=== PATIENT | male | born 1955 | race Caucasian/White ===

== ENCOUNTER 2020-10-03 14:25 | Observation (INO) ==
[2020-10-03] MEDS ORDERED: PIPERACILLIN/TAZOBACTAM 4.5 GM/120 ML BAG IV ONE (15:08)
[2020-10-03] MEDS ORDERED: PIPERACILL/TAZOBAC CONSULT ACTIVE PRN (15:08)
[2020-10-03] MEDS ORDERED: SODIUM CHLORIDE 0.9% 1000ML 1,000 ML IV SCH (15:09)
--- NOTE | 2020-10-03 15:14 | Emergency Department Note ---
History of Present Illness General Chief complaint: Abnormal Labs/Diagnostic Testing Stated complaint: REFERRED BY DR. INES HENDRICKSON. ABNORMAL CT SCAN Time Seen by Provider: 10/03/20 14:51 History of Present Illness Patient is a 65-year-old male with no significant past medical history who presents the emergency department at the advice of his primary care provider after having an outpatient CT scan yesterday. Patient notes that about 2 weeks ago, he was having some very low suprapubic/left lower quadrant abdominal pain. It was quite severe at that time. He had an abdominal ultrasound on 09/20 which showed some gallbladder sludge, and nephrolithiasis, but no ureteral stones or hydronephrosis. No evidence for acute cholecystitis. The pain went away. The patient has been feeling well since, with no recurrent abdominal pain, nausea, vomiting, anorexia, fevers or bowel changes. History of kidney stones, he was seen here in August. His primary care provider however wanted to do a CT scan, and he had a CT scan with IV and oral contrast performed as an outpatient yesterday afternoon around 1430. He was contacted today with abnormal results and told to present directly to the emergency department. Again the patient has no complaints. Pain is a 0/10. He ate Ramen noodles today at 1130, and carrot cake at 1330. He denies any urinary symptoms. Last colonoscopy was about 5 or 6 years ago, that he had polyps removed. Home Medications Medication Instructions Recorded Confirmed Type No Known Home Medications 10/03/20 10/03/20 History Allergies Allergy/AdvReac Type Severity Reaction Status Date / Time No Known Allergies Allergy Unverified 10/03/20 15:54 Past Med/Surg History Medical History Kidney stones Obesity Surgical History S/P right knee arthroscopy Social History Smoking Status: Current some day smoker Second Hand Exposure: No; Do You Dip or Chew Tobacco: No; Tobacco Cessation Education Requested by Patient: No Hx Alcohol Use: Yes Alcohol type: beer Hx Substance Use: No Preferred Language: Macanese Communication Ability: Effective [employer] Or [employer]mediate School Principal Required: No Beliefs That Will Affect Care: None marital status: Current Living Situation: Spouse current occupational status: employed Other Information That Helps Us Care for You: No Feels Safe at Home: Yes Assistive Devices: Glasses Review of Systems A total of 10 systems reviewed and were otherwise negative Physical Exam Vital Signs Vital Signs - 24 hr 10/03/20 14:28 10/03/20 15:53 10/03/20 16:00 Temperature 36.7 C Temperature Source Temporal Artery Scan Pulse Rate 91 H 67 67 Pulse Rate from SpO2 Sensor 68 67 Respiratory Rate 18 18 17 Respiratory Effort / Characteristics Non-Labored Respiratory Depth Normal Blood Pressure 166/105 H 150/111 H 147/91 H Blood Pressure Mean 125 124 109 Pulse Oximetry 98 99 99 Oxygen Delivery Method Room Air Sepsis Recent Fever Within 48 Hours No Sepsis New/Unexplained Change in Mental Status No Sepsis Action Taken by Nursing No Action Required 10/03/20 16:30 10/03/20 17:04 Temperature Temperature Source Pulse Rate 63 65 Pulse Rate from SpO2 Sensor 64 66 Respiratory Rate 19 17 Respiratory Effort / Characteristics Respiratory Depth Blood Pressure 160/95 H 148/106 H Blood Pressure Mean 116 120 Pulse Oximetry 100 98 Oxygen Delivery Method Sepsis Recent Fever Within 48 Hours Sepsis New/Unexplained Change in Mental Status Sepsis Action Taken by Nursing CONSTITUTIONAL: Patient is an overweight 65-year-old male who is awake and alert and in no acute distress. EYES: Pupils equal, round, reactive to light and accommodation. EOMs intact without nystagmus. Sclera are anicteric. CARDIOVASCULAR: Regular rate and rhythm. Peripheral pulses easy to palpable. RESPIRATORY: Breath sounds equal and clear to auscultation without wheezes, rales, or rhonchi heard. Full and equal chest expansion without accessory muscle use or retractions. GI: Bowel sounds are present. Abdomen is soft, obese, nontender to percussion throughout. Very minimal tenderness on the left lower quadrant with deep palpation. No guarding or rebound. No organomegaly. No pulsatile masses. MUSCULOSKELETAL: Full range of motion of extremities x 4 with good strength. No cyanosis, edema, joint tenderness or swelling. No deformity. INTEGUMENTARY: No lesions or rash, normal skin turgor. NEUROLOGICAL: Alert, oriented, and cooperative. Cranial nerves, sensation and strength grossly intact. Pupils round, equal, and react to light, EOMs are full. LYMPH: No lymphadenopathy. Course Course The patient was seen and assessed as above. Old records were reviewed. He presents the emergency department for evaluation after he had an abnormal CT scan as an outpatient yesterday. CT scan notes acute diverticulitis within the mid sigmoid colon with focal pericolonic perforation/developing abscess measuring 3.[address] scan findings were reviewed with the patient and his . Patient history and presentation were reviewed with Dr. Armendariz, and ED work-up was agreed upon. IV lock was initiated and laboratory studies were collected. CBC with differential, CMP, urinalysis, lactate and blood cultures x2 were drawn. He was instructed to remain NPO. He was hydrated with normal saline solution and given Zosyn 4.5 g IV empirically. Consultation was placed with general surgery, Dr. Contreras. He recommended admission to the hospitalist service, and he will consult. Laboratory studies noted a white count of 5800, no left shift, no bandemia. H&H is normal. Electrolytes are within normal limits. BUN 13, creatinine 0.85. His lactate is just minimally elevated at 2.1. Transaminases are normal. Urine microscopy is clear. The patient received a liter bolus of normal saline solution x1, then 250 cc/h. Patient was reviewed with the [facility] Hospitalist Service for admission. Patient was discussed with Dr. Barnes. The patient was reassessed. Laboratory studies were reviewed with him. Discussed with him that I had reviewed his case with general surgery, and had just spoken with the hospitalist team, and they would work on getting him admitted. Administered Medications Sodium Chloride (Nss 1000ml) 1,000 mls @ 250 mls/hr IV .Q4H LAUREN Stop: 11/02/20 15:14 Last Admin: 10/03/20 20:47 Dose: Not Given Documented by: [id number] Infusion: 10/03/20 20:37 Dose: 0 mls/hr Documented by: [id number] Admin: 10/03/20 17:01 Dose: 250 mls/hr Documented by: [id number] Sodium Chloride (Nss 1000ml) 1,000 mls @ 100 mls/hr IV .Q10H LAUREN Stop: 11/02/20 19:59 Last Admin: 10/03/20 20:28 Dose: 100 mls/hr Documented by: [id number] Piperacillin Sod/Tazobactam (Sod 4.5 gm/ Dextrose) 120 mls @ 30 mls/hr IV Q8H [facility]; Protocol Stop: 10/13/20 21:59 Last Admin: 10/03/20 21:34 Dose: 30 mls/hr Documented by: [id number] Discontinued Medications Sodium Chloride (Nss 1000ml) 1,000 mls @ 999 mls/hr IV .Q1H1M LAUREN Stop: 10/03/20 16:09 Last Infusion: 10/03/20 16:57 Dose: 0 mls/hr Documented by: [id number] Admin: 10/03/20 15:50 Dose: 999 mls/hr Documented by: [id number] Piperacillin Sod/Tazobactam Sod (Zosyn) 4.5 gm in 120 mls @ 240 mls/hr IV NOW ONE Stop: 10/03/20 15:37 Last Infusion: 10/03/20 16:57 Dose: 0 mls/hr Documented by: [id number] Admin: 10/03/20 15:50 Dose: 240 mls/hr Documented by: [id number] Medical Decision Making Differential Diagnosis Differential diagnoses entertained included UTI, pyelonephritis, renal colic, hernia, bowel obstruction, perforation, abscess, diverticulitis, mass or malignancy, prostatitis, among others. Medical Records Attestation: I reviewed the patient's medical records. Home Medications Current Medication List: was personally reviewed by me Laboratory Data Attestation: I reviewed the patient's lab results. Result diagrams: 10/03/20 15:35 10/03/20 15:35 Lab Results 10/03/20 10/03/20 10/03/20 Range/Units 15:35 15:35 15:35 WBC 5.89 (4.8-10.8) K/uL RBC 4.92 (4.7-6.1) M/uL Hgb 14.5 (14.0-18.0) g/dL Hct 43.0 (42-52) % MCV 87.4 (80-100) fL MCH 29.5 (25-34) pg MCHC 33.7 (32-36) g/dL RDW Std Deviation 44.0 (36.4-46.3) fL RDW Coeff of Prudence 13.8 (11.5-14.5) % Plt Count 190 (130-400) K/uL MPV 9.7 (7.4-10.4) fL Immature Gran % (Auto) 0.2 % Neut % (Auto) 64.0 % Lymph % (Auto) 29.5 % Bryan % (Auto) 5.6 % Eos % (Auto) 0.5 % Baso % (Auto) 0.2 % Neut # (Auto) 3.77 (1.4-6.5) K/uL Lymph # (Auto) 1.74 (1.2-3.4) K/uL Bryan # (Auto) 0.33 (0.11-0.59) K/uL Eos # (Auto) 0.03 (0-0.5) K/uL Baso # (Auto) 0.01 (0-0.2) K/uL Immature Gran # (Auto) 0.01 (0.00-0.02) K/uL Sodium 140 (136-145) mmol/L Potassium 3.6 (3.5-5.1) mmol/L Chloride 109 H (98-107) mmol/L Carbon Dioxide 26 (21-32) mmol/L Anion Gap 5.0 (3-11) BUN 13 (7-18) mg/dl Creatinine 0.85 (0.6-1.4) mg/dl Est Cr Clr Drug Dosing 115.4 ml/min Est GFR ( Amer) 107.5 ml/min Est GFR (Non-Af Amer) 92.7 ml/min BUN/Creatinine Ratio 15.3 (10-20) Glucose 117 H (70-99) mg/dl Lactate 2.1 H* (0.4-2.0) mmol/L Calcium 9.0 (8.5-10.1) mg/dl Total Bilirubin 0.3 (0.2-1) mg/dl AST 14 L (15-37) U/L ALT 28 (12-78) U/L Alkaline Phosphatase 95 (45-117) U/L Total Protein 7.5 (6.4-8.2) gm/dl Albumin 3.5 (3.4-5.0) gm/dl Globulin 4.0 (2.5-4.0) gm/dl Albumin/Globulin Ratio 0.9 (0.9-2) Urine Color Urine Appearance (Clear) Urine pH (4.5-7.5) Ur Specific [place] (1.000-1.030) Urine Protein (Negative) Urine Glucose (UA) (Negative) Urine Ketones (Negative) Urine Blood (Negative) Urine Nitrite (Negative) Urine Bilirubin (Negative) Urine Urobilinogen (Negative) Ur Leukocyte Esterase (Negative) COVID-19 Eval Order SARS-CoV-2 (PCR) (Negative) 10/03/20 10/03/20 10/03/20 Range/Units 16:00 17:00 17:00 WBC (4.8-10.8) K/uL RBC (4.7-6.1) M/uL Hgb (14.0-18.0) g/dL Hct (42-52) % MCV (80-100) fL MCH (25-34) pg MCHC (32-36) g/dL RDW Std Deviation (36.4-46.3) fL RDW Coeff of Prudence (11.5-14.5) % Plt Count (130-400) K/uL MPV (7.4-10.4) fL Immature Gran % (Auto) % Neut % (Auto) % Lymph % (Auto) % Bryan % (Auto) % Eos % (Auto) % Baso % (Auto) % Neut # (Auto) (1.4-6.5) K/uL Lymph # (Auto) (1.2-3.4) K/uL Bryan # (Auto) (0.11-0.59) K/uL Eos # (Auto) (0-0.5) K/uL Baso # (Auto) (0-0.2) K/uL Immature Gran # (Auto) (0.00-0.02) K/uL Sodium (136-145) mmol/L Potassium (3.5-5.1) mmol/L Chloride (98-107) mmol/L Carbon Dioxide (21-32) mmol/L Anion Gap (3-11) BUN (7-18) mg/dl Creatinine (0.6-1.4) mg/dl Est Cr Clr Drug Dosing ml/min Est GFR ( Amer) ml/min Est GFR (Non-Af Amer) ml/min BUN/Creatinine Ratio (10-20) Glucose (70-99) mg/dl Lactate (0.4-2.0) mmol/L Calcium (8.5-10.1) mg/dl Total Bilirubin (0.2-1) mg/dl AST (15-37) U/L ALT (12-78) U/L Alkaline Phosphatase (45-117) U/L Total Protein (6.4-8.2) gm/dl Albumin (3.4-5.0) gm/dl Globulin (2.5-4.0) gm/dl Albumin/Globulin Ratio (0.9-2) Urine Color Dark Yellow Urine Appearance Clear (Clear) Urine pH 7.0 (4.5-7.5) Ur Specific [place] 1.023 (1.000-1.030) Urine Protein Negative (Negative) Urine Glucose (UA) Negative (Negative) Urine Ketones Negative (Negative) Urine Blood Negative (Negative) Urine Nitrite Negative (Negative) Urine Bilirubin Negative (Negative) Urine Urobilinogen Negative (Negative) Ur Leukocyte Esterase Negative (Negative) COVID-19 Eval Order Covid19 at [facility] SARS-CoV-2 (PCR) NEGATIVE (Negative) Imaging Data Attestation: I personally reviewed and interpreted this imaging study as follows: Radiologist's Impression: CT scan of the abdomen and pelvis from 10/02/20: Acute diverticulitis within the mid sigmoid colon with a focal pericolonic perforation/developing abscess measuring 3.2 cm. Bilateral nephrolithiasis. No ureteral stones. No hydronephrosis. No evidence for bowel obstruction. Normal appendix. MDM Narrative See ED Course. Impression & Plan Abscess of sigmoid colon due to diverticulitis, Sigmoid diverticulitis, Perforation of sigmoid colon due to diverticulitis Discharge Plan Visit Data Chief Complaint: Abnormal Labs/Diagnostic Testing Stated Complaint: REFERRED BY , DR. CHACON. ABNORMAL CT SCAN ED Provider: Chemo Armendariz ED Midlevel Provider: Nasra Almendarez Discharge Problem: Abscess of sigmoid colon due to diverticulitis, Sigmoid diverticulitis, Perforation of sigmoid colon due to diverticulitis Patient Disposition: Admitted As Inpatient Discharge Instructions Interventions: ED Discharge Assessment Last Done: 10/03/20 19:43
[2020-10-03 15:45] LABS: Basophils # (auto) 0.01 K/uL (0-0.2); Basophils % (auto) 0.2 %; Eosinophils # (auto) 0.03 K/uL (0-0.5); Eosinophils % (auto) 0.5 %; Hemoglobin 14.5 g/dL (14.0-18.0); Immature Granulocytes # (auto) 0.01 K/uL (0.00-0.02); Immature Granulocytes % (auto) 0.2 %; Lymphocytes # (auto) 1.74 K/uL (1.2-3.4); Lymphocytes % (auto) 29.5 %; Mean Corpuscular Hemoglobin 29.5 pg (25-34); Mean Corpuscular Hgb Conc 33.7 g/dL (32-36); Mean Corpuscular Volume 87.4 fL (80-100); Mean Platelet Volume 9.7 fL (7.4-10.4); Monocytes # (auto) 0.33 K/uL (0.11-0.59); Monocytes % (auto) 5.6 %; Neutrophils # (auto) 3.77 K/uL (1.4-6.5); Platelet Count 190 K/uL (130-400); RDW Coefficient of Variation 13.8 % (11.5-14.5); Red Blood Count 4.92 M/uL (4.7-6.1); White Blood Count 5.89 K/uL (4.8-10.8)
[2020-10-03 16:04] LABS: Albumin Level 3.5 gm/dl (3.4-5.0); BUN Creatinine Ratio 15.3 (10-20); Creatinine Clr Calc Pharmacy 115.4 ml/min; Est GFR (African American) 107.5 ml/min; Est GFR (Non-African American) 92.7 ml/min; Potassium 3.6 mmol/L (3.5-5.1)
[2020-10-03 16:06] LABS: Albumin Globulin Ratio 0.9 (0.9-2); Bilirubin,Total 0.3 mg/dl (0.2-1); Total Protein 7.5 gm/dl (6.4-8.2)
[2020-10-03 16:19] LABS: Appearance Urine Clear (Clear); Bilirubin Urine Negative (Negative); Blood Urine Negative (Negative); Color Urine Dark Yellow; Glucose Urine UA Negative (Negative); Ketones Urine Negative (Negative); Leukocyte Esterase Urine Negative (Negative); Nitrite Urine Negative (Negative); Protein Urine Negative (Negative); Specific Gravity Urine 1.023 (1.000-1.030); Urobilinogen Urine Negative (Negative)
--- NOTE | 2020-10-03 16:23 | Surgery Consultation ---
Date of Consultation October 03, 2020 Assessment & Plan (1) Acute diverticulitis: pt is a 65 year-old male who presents to with abdominal CT scan finding, pt had CT scan abdomen yesterday and lower abdominal pain 2 weeks ago, CT scan finding-IMPRESSION: 1. Acute diverticulitis within the mid sigmoid colon with a focal pericolonic perforation/developing abscess measuring 3.2 cm. 2. Bilateral nephrolithiasis. No ureteral stones. No hydronephrosis. 3. Additional findings as described above. IMP: Acute diverticulitis within the mid sigmoid colon with a focal pericolonic perforation/developing abscess measuring 3.2 cm. Plan, base on pt has no abdominal pain, no fever, recommend medicine team admit pt to hospital conservative treatment, NPO, IV fluid, IV antibiotic, Zosyn 3.375gm iv q8h, repeat labs in morning, will F/U, pt agrees with the plan, I answered all questions, Thanks, Present on Admission?: Yes History of Present Illness History of Present Illness History of Present Illness General Chief complaint: Abnormal Labs/Diagnostic Testing Stated complaint: REFERRED BY DR. INES HENDRICKSON. ABNORMAL CT SCAN Time Seen by Provider: 10/03/20 14:51 History of Present Illness Patient is a 65-year-old male with no significant past medical history who presents the emergency department at the advice of his primary care provider after having an outpatient CT scan yesterday. Patient notes that about 2 weeks ago, he was having some very low suprapubic/left lower quadrant abdominal pain. It was quite severe at that time. He had an abdominal ultrasound on 09/20 which showed some gallbladder sludge, and nephrolithiasis, but no ureteral stones or hydronephrosis. No evidence for acute cholecystitis. The pain went away. The patient has been feeling well since, with no recurrent abdominal pain, nausea, vomiting, anorexia, fevers or bowel changes. History of kidney stones, he was seen here in August. His primary care provider however wanted to do a CT scan, and he had a CT scan with IV and oral contrast performed as an outpatient yesterday afternoon around 1430. He was contacted today with abnormal results and told to present directly to the emergency department. Again the patient has no complaints. Pain is a 0/10. He ate Ramen noodles today at 1130, and carrot cake at 1330. He denies any urinary symptoms. Last colonoscopy was about 5 or 6 years ago, that he had polyps removed. I ( Flora Contreras MD) got a call for consult diverticulitis, I reviewed pt's H/P, labs, and CT scan with pt, pt had lower abdominal pain 2 weeks ago, now pt denies abdominal pain, no nausea, no diarrhea, no fever, passed BM this morning. Home Medications Medication Instructions Recorded Confirmed Type ondansetron HCl [Zofran] 4 mg PO TID PRN #10 tab 08/13/20 Rx tamsulosin [Flomax] 0.4 mg PO DAILY #10 cap 08/13/20 Rx Allergies Allergy/AdvReac Type Severity Reaction Status Date / Time No Known Allergies Allergy Unverified 04/25/15 08:54 Past Med/Surg History Medical History Kidney stones Obesity Surgical History S/P right knee arthroscopy Social History Smoking Status: Current some day smoker marital status: Current Living Situation: Family current occupational status: employed Feels Safe at Home: Yes Review of Systems A total of 10 systems reviewed and were otherwise negative Allergies Allergy/AdvReac Type Severity Reaction Status Date / Time No Known Allergies Allergy Unverified 10/03/20 15:54 Home Medications Medication Instructions Recorded Confirmed Type No Known Home Medications 10/03/20 10/03/20 History Patient History Medical History Kidney stones Obesity Surgical History S/P right knee arthroscopy Social History Smoking Status: Current some day smoker marital status: Current Living Situation: Family current occupational status: employed Feels Safe at Home: Yes Physical Exam Constitutional: WD/WN, vitals as above well developed and well nourished Eyes: PERRL, conjunctivae normal, anicteric sclerae ENMT: external ear and nose normal, oropharynx normal Neck: trachea midline, no thyromegaly Respiratory: normal respiratory effort, lungs clear to auscultation normal respiratory effort Cardiovascular: RRR, no murmur, no edema Rate/Rhythm: regular rate and regular rhythm Gastrointestinal (Abdomen): normal bowel sounds, soft, nontender, no he patosplenomegaly Percussion/Palpation: abdomen soft Musculoskeletal: no cyanosis or clubbing, extremities motor strength 5/5 Skin: no rashes, warm and dry Neurologic: awake Psychiatric: Orientation: alert and oriented x 3 Results & Data ([facility]) Vital Signs (Past 12 Hours) Vital Signs Temp Pulse Resp BP Pulse Ox 10/03/20 14:28 36.7 C 91 H 18 166/105 H 98 Laboratory Results Abnormal lab results 10/03/20 10/03/20 Range/Units 15:35 15:35 Chloride 109 H (98-107) mmol/L Glucose 117 H (70-99) mg/dl Lactate 2.1 H* (0.4-2.0) mmol/L AST 14 L (15-37) U/L Diagnostic Findings ABDOMEN AND PELVIS CT WITH IV AND ORAL CONTRAST CT DOSE: 1618.37 mGy.cm HISTORY: Lower abdominal pain. TECHNIQUE: Multiaxial CT images of the abdomen and pelvis were performed following the use of intravenous and oral contrast. A dose lowering technique was utilized adhering to the principles of ALARA. COMPARISON STUDY: Abdomen and pelvis CT 08/13/2020. FINDINGS: No change in the bibasilar interstitial thickening and small groundglass densities at the lung bases. This is likely chronic. No suspicious lytic or blastic osseous lesions. No hepatic or splenic masses. Stable thickening of the adrenal glands, unchanged. There is also a stable 2.1 cm adenoma within the left adrenal gland. The gallbladder and pancreas are unremarkable. Normal caliber abdominal aorta. No retroperitoneal lymphadenop athy. Bilateral nephrolithiasis. Dominant stone within the left kidney measures 9 mm. Stable 1 cm hypodense lesion within the upper pole the right kidney. No ureteral stones. No hydronephrosis. The bladder is unremarkable. Multiple colonic diverticula. Mild focal thickening within the mid sigmoid colon. There is a focal contained perforation with surrounding inflammatory change adjacent to the mid sigmoid colon. This area measures approximately 3.2 cm and contains a small of gas and trace fluid. This likely represents a developing pericolonic abscess. No evidence for bowel obstruction. Normal appendix.
--- NOTE | 2020-10-03 16:57 | History & Physical Report ---
Date of Service October 03, 2020 Assessment & Plan (1) Abscess of sigmoid colon due to diverticulitis: Placed in a monitored observation Patient was given [facility] emergency room, okay to continue this for now Will start patient on clear liquid diet No need for analgesia this patient started having significant pain ER AMBER did speak to general surgery, will follow in consult but the patient has no immediate need for surgery If patient continues to do well, suspect he can be transitioned fairly readily to oral antibiotics with close outpatient follow-up. Will need repeat CT in the short-term to ensure abscess is resolving History of Present Illness Chief Complaint: Abnormal CT Primary Care Provider: ABDULAZIZ Ray This is 65-year-old male with past medical history of diverticulosis and a recent nephrolithiasis that presents today after abnormal CT scan on the advice of his physician. Patient is a somewhat difficult historian but able to answer questions appropriately. The story as best I can tell, the patient had some abdominal pain over the past 2 weeks. He experienced pain for a week before seeking medical attention. This was a diffuse but not severe. He had no nausea vomiting or fevers with this. I do not notice any weight loss with this. Patient saw his physician and underwent an abdominal ultrasound to rule out biliary disease. This was essentially negative. He tells me he was taking some sort of pain pill at home that he had left over from his renal stone and that this helped the pain. Patient tells me that a CT scan has been ordered but there is issues getting this performed secondary to the insurance company. Symptoms essentially resolved after week. However the patient went for a CAT scan earlier today which found acute diverticulitis within the mid sigmoid along with focal pericolonic perforation and an abscess of 3.2 cm. The time my evaluation, the patient felt well is in no distress. He denied any further abdominal pain. He denied any fevers or chills. He tells me he has been eating normally since the pain resolved and is had no issues. He is in no cardiopulmonary distress. Allergies Allergy/AdvReac Type Severity Reaction Status Date / Time No Known Allergies Allergy Unverified 10/03/20 15:54 Home Medications Medication Instructions Recorded Confirmed Type No Known Home Medications 10/03/20 10/03/20 History Past Med/Surg History Medical History Kidney stones Obesity Surgical History S/P right knee arthroscopy Social History Smoking Status: Current some day smoker marital status: Current Living Situation: Family current occupational status: employed Feels Safe at Home: Yes Review of Systems Constitutional: no fever, no chills, no weakness, no weight loss and no weight gain Eyes: as per Subjective / HPI Respiratory: no cough, no chest congestion, no dyspnea and no dyspnea on exertion Cardiovascular: no chest pain, no orthopnea, no palpitations, no lightheadedness and no edema Gastrointestinal: + abdominal pain (since resolved); no nausea, no vomiting, no constipation and no diarrhea/loose stools Musculoskeletal: no back pain, no neck pain, no joint pain, no stiffness and no myalgia Integumentary: no rash Neurologic: no gait abnormality, no unsteadiness, no falls and no generalized weakness Physical Exam Constitutional: cooperative; no acute distress Neck: trachea midline, no thyromegaly Respiratory: normal respiratory effort Auscultation: lungs clear to auscultation bilaterally; no crackles, no rales, no rhonchi and no wheezes Cardiovascular: Rate/Rhythm: regular rate and regular rhythm Heart Sounds: normal S1 and normal S2; no murmur Gastrointestinal (Abdomen): Inspection/Auscultation: abdomen normal to inspection Percussion/Palpation: abdomen soft; abdomen nontender, no guarding, abdomen not rigid and no hepatosplenomegaly Skin: no rashes, warm and dry Results & Data Results & Data ([facility]) Vital Signs (Past 12 Hours) Vital Signs Temp Pulse Resp BP Pulse Ox 10/03/20 16:30 63 19 160/95 H 100 10/03/20 16:00 67 17 147/91 H 99 10/03/20 15:53 67 18 150/111 H 99 10/03/20 14:28 36.7 C 91 H 18 166/105 H 98 PG Care Time/CCT Total # of Minutes Spent Total Time Spent with Patient: Total time spent is greater than 50% in coordination of care (as documented) at patient's floor/unit and/or counseling patient: Coding Level of Care Code 09666 OBS Care - Level 3 Diagnoses Abscess of sigmoid colon due to diverticulitis K57.20
[2020-10-03] MEDS: SODIUM CHLORIDE 0.9% 1000ML 1,000 ML IV SCH ×3 (17:01→20:47)
[2020-10-03] MEDS ORDERED: ACETAMINOPHEN 325 MG TAB PO PRN (20:00)
[2020-10-03] MEDS ORDERED: PIPERACILLIN/TAZOBACTAM 3.375 GM in DEXTROSE 5% 100 ML IV SCH (20:00)
[2020-10-03] MEDS ORDERED: ONDANSETRON INJ 2 MG/ML 2 ML VIAL IV PRN (20:00)
[2020-10-03] MEDS: PIPERACILLIN/TAZOBACTAM 4.5 GM in DEXTROSE 5% 100 ML IV SCH (21:34)
[2020-10-04] MEDS: SODIUM CHLORIDE 0.9% 1000ML 1,000 ML IV SCH ×5 (04:42→17:45)
[2020-10-04] MEDS: PIPERACILLIN/TAZOBACTAM 4.5 GM in DEXTROSE 5% 100 ML IV SCH ×2 (06:23→14:25)
[2020-10-04 06:31] LABS: Basophils # (auto) 0.01 K/uL (0-0.2); Basophils % (auto) 0.2 %; Eosinophils # (auto) 0.06 K/uL (0-0.5); Eosinophils % (auto) 1.1 %; Hematocrit (blood only) 40.3 % (42-52); Hemoglobin 13.3 g/dL (14.0-18.0); Lymphocytes # (auto) 2.56 K/uL (1.2-3.4); Mean Corpuscular Hemoglobin 29.3 pg (25-34); Mean Corpuscular Volume 88.8 fL (80-100); Mean Platelet Volume 9.7 fL (7.4-10.4); Monocytes % (auto) 5.4 %; Neutrophils # (auto) 2.64 K/uL (1.4-6.5); Neutrophils % (auto) 47.3 %; Platelet Count 200 K/uL (130-400); RDW Coefficient of Variation 14.1 % (11.5-14.5); RDW Standard Deviation 45.8 fL (36.4-46.3); Red Blood Count 4.54 M/uL (4.7-6.1); White Blood Count 5.57 K/uL (4.8-10.8)
[2020-10-04 07:10] LABS: Calcium 8.6 mg/dl (8.5-10.1); Est GFR (African American) 115.7 ml/min; Est GFR (Non-African American) 99.9 ml/min; Magnesium 2.3 mg/dl (1.8-2.4); Potassium 3.9 mmol/L (3.5-5.1)
--- NOTE | 2020-10-04 09:48 | Surgery Progress Note ---
Date of Service October 04, 2020 Assessment & Plan (1) Acute diverticulitis: Complicated diverticulitis with microperforation and 3.2 cm abscess afebrile no leukocytosis abdominal pain resolved tolerated clear liquids Plan: Discussed with patient that he is clinically improving, pain resolved, afebrile and no leukocytosis however given the abscess formation will need prolonged antibiotics. Likely total of 14 days of abx. Continue IV Zosyn Advance diet to full liquids will need outpatient colonoscopy in 8 weeks low fiber diet on discharge during acute phase and transition to high fiber diet after colonoscopy Dr. Contreras has seen and examined pt, agrees with above. Admission and Anticipated Discharge Date Admission Date: October 03, 2020 Subjective feeling good no abdominal pain, n/v tolerated clear liquids this morning passing gas, no bowel movement since yesterday morning Physical Exam Constitutional: well developed and well nourished; no acute distress Respiratory: normal respiratory effort; no respiratory distress Gastrointestinal (Abdomen): Inspection/Auscultation: abdomen normal to inspection and normal bowel sounds; abdomen not distended Percussion/Palpation: abdomen soft; abdomen nontender, no guarding and abdomen not rigid Skin: no rashes, warm and dry Psychiatric: A+Ox3, euthymic affect Results & Data ([facility] [place]) Vital Signs (Past 12 Hours) Vital Signs Temp Pulse Pulse Resp BP Pulse Ox 10/04/20 07:35 36.8 C 50 L 18 132/80 95 10/03/20 22:42 36.9 C 46 L 16 138/86 96 Laboratory Results 10/04/20 10/04/20 10/04/20 Range/Units 06:18 06:18 06:18 WBC 5.57 (4.8-10.8) K/uL RBC 4.54 L (4.7-6.1) M/uL Hgb 13.3 L (14.0-18.0) g/dL Hct 40.3 L (42-52) % MCV 88.8 (80-100) fL MCH 29.3 (25-34) pg MCHC 33.0 (32-36) g/dL RDW Std Deviation 45.8 (36.4-46.3) fL RDW Coeff of Prudence 14.1 (11.5-14.5) % Plt Count 200 (130-400) K/uL MPV 9.7 (7.4-10.4) fL Immature Gran % (Auto) 0.0 % Neut % (Auto) 47.3 % Lymph % (Auto) 46.0 % [place] % (Auto) 5.4 % Eos % (Auto) 1.1 % Baso % (Auto) 0.2 % Neut # (Auto) 2.64 (1.4-6.5) K/uL Lymph # (Auto) 2.56 (1.2-3.4) K/uL [place] # (Auto) 0.30 (0.11-0.59) K/uL Eos # (Auto) 0.06 (0-0.5) K/uL Baso # (Auto) 0.01 (0-0.2) K/uL Immature Gran # (Auto) 0.00 (0.00-0.02) K/uL Sodium 142 (136-145) mmol/L Potassium 3.9 (3.5-5.1) mmol/L Chloride 114 H (98-107) mmol/L Carbon Dioxide 24 (21-32) mmol/L Anion Gap 4.0 (3-11) BUN 9 (7-18) mg/dl Creatinine 0.71 (0.6-1.4) mg/dl Est Cr Clr Drug Dosing 138.0 ml/min Est GFR ( Amer) 115.7 ml/min Est GFR (Non-Af Amer) 99.9 ml/min BUN/Creatinine Ratio 12.0 (10-20) Glucose 94 (70-99) mg/dl Lactate (0.4-2.0) mmol/L Calcium 8.6 (8.5-10.1) mg/dl Magnesium 2.3 (1.8-2.4) mg/dl Total Bilirubin (0.2-1) mg/dl AST (15-37) U/L ALT (12-78) U/L Alkaline Phosphatase (45-117) U/L Total Protein (6.4-8.2) gm/dl Albumin (3.4-5.0) gm/dl Globulin (2.5-4.0) gm/dl Albumin/Globulin Ratio (0.9-2) Urine Color Urine Appearance (Clear) Urine pH (4.5-7.5) Ur Specific [place] (1.000-1.030) Urine Protein (Negative) Urine Glucose (UA) (Negative) Urine Ketones (Negative) Urine Blood (Negative) Urine Nitrite (Negative) Urine Bilirubin (Negative) Urine Urobilinogen (Negative) Ur Leukocyte Esterase (Negative) COVID-19 Eval Order SARS-CoV-2 (PCR) (Negative) Hepatitis C Ab Screen Pending 10/03/20 10/03/20 10/03/20 Range/Units 17:38 17:00 17:00 WBC (4.8-10.8) K/uL RBC (4.7-6.1) M/uL Hgb (14.0-18.0) g/dL Hct (42-52) % MCV (80-100) fL MCH (25-34) pg MCHC (32-36) g/dL RDW Std Deviation (36.4-46.3) fL RDW Coeff of Prudence (11.5-14.5) % Plt Count (130-400) K/uL MPV (7.4-10.4) fL Immature Gran % (Auto) % Neut % (Auto) % Lymph % (Auto) % [place] % (Auto) % Eos % (Auto) % Baso % (Auto) % Neut # (Auto) (1.4-6.5) K/uL Lymph # (Auto) (1.2-3.4) K/uL [place] # (Auto) (0.11-0.59) K/uL Eos # (Auto) (0-0.5) K/uL Baso # (Auto) (0-0.2) K/uL Immature Gran # (Auto) (0.00-0.02) K/uL Sodium (136-145) mmol/L Potassium (3.5-5.1) mmol/L Chloride (98-107) mmol/L Carbon Dioxide (21-32) mmol/L Anion Gap (3-11) BUN (7-18) mg/dl Creatinine (0.6-1.4) mg/dl Est Cr Clr Drug Dosing ml/min Est GFR ( Amer) ml/min Est GFR (Non-Af Amer) ml/min BUN/Creatinine Ratio (10-20) Glucose (70-99) mg/dl Lactate 1.4 (0.4-2.0) mmol/L Calcium (8.5-10.1) mg/dl Magnesium (1.8-2.4) mg/dl Total Bilirubin (0.2-1) mg/dl AST (15-37) U/L ALT (12-78) U/L Alkaline Phosphatase (45-117) U/L Total Protein (6.4-8.2) gm/dl Albumin (3.4-5.0) gm/dl Globulin (2.5-4.0) gm/dl Albumin/Globulin Ratio (0.9-2) Urine Color Urine Appearance (Clear) Urine pH (4.5-7.5) Ur Specific [place] (1.000-1.030) Urine Protein (Negative) Urine Glucose (UA) (Negative) Urine Ketones (Negative) Urine Blood (Negative) Urine Nitrite (Negative) Urine Bilirubin (Negative) Urine Urobilinogen (Negative) Ur Leukocyte Esterase (Negative) COVID-19 Eval Order Covid19 at [facility] SARS-CoV-2 (PCR) NEGATIVE (Negative) Hepatitis C Ab Screen 10/03/20 10/03/20 10/03/20 Range/Units 16:00 15:35 15:35 WBC (4.8-10.8) K/uL RBC (4.7-6.1) M/uL Hgb (14.0-18.0) g/dL Hct (42-52) % MCV (80-100) fL MCH (25-34) pg MCHC (32-36) g/dL RDW Std Deviation (36.4-46.3) fL RDW Coeff of Prudence (11.5-14.5) % Plt Count (130-400) K/uL MPV (7.4-10.4) fL Immature Gran % (Auto) % Neut % (Auto) % Lymph % (Auto) % [place] % (Auto) % Eos % (Auto) % Baso % (Auto) % Neut # (Auto) (1.4-6.5) K/uL Lymph # (Auto) (1.2-3.4) K/uL [place] # (Auto) (0.11-0.59) K/uL Eos # (Auto) (0-0.5) K/uL Baso # (Auto) (0-0.2) K/uL Immature Gran # (Auto) (0.00-0.02) K/uL Sodium 140 (136-145) mmol/L Potassium 3.6 (3.5-5.1) mmol/L Chloride 109 H (98-107) mmol/L Carbon Dioxide 26 (21-32) mmol/L Anion Gap 5.0 (3-11) BUN 13 (7-18) mg/dl Creatinine 0.85 (0.6-1.4) mg/dl Est Cr Clr Drug Dosing 115.4 ml/min Est GFR ( Amer) 107.5 ml/min Est GFR (Non-Af Amer) 92.7 ml/min BUN/Creatinine Ratio 15.3 (10-20) Glucose 117 H (70-99) mg/dl Lactate 2.1 H* (0.4-2.0) mmol/L Calcium 9.0 (8.5-10.1) mg/dl Magnesium (1.8-2.4) mg/dl Total Bilirubin 0.3 (0.2-1) mg/dl AST 14 L (15-37) U/L ALT 28 (12-78) U/L Alkaline Phosphatase 95 (45-117) U/L Total Protein 7.5 (6.4-8.2) gm/dl Albumin 3.5 (3.4-5.0) gm/dl Globulin 4.0 (2.5-4.0) gm/dl Albumin/Globulin Ratio 0.9 (0.9-2) Urine Color Dark Yellow Urine Appearance Clear (Clear) Urine pH 7.0 (4.5-7.5) Ur Specific [place] 1.023 (1.000-1.030) Urine Protein Negative (Negative) Urine Glucose (UA) Negative (Negative) Urine Ketones Negative (Negative) Urine Blood Negative (Negative) Urine Nitrite Negative (Negative) Urine Bilirubin Negative (Negative) Urine Urobilinogen Negative (Negative) Ur Leukocyte Esterase Negative (Negative) COVID-19 Eval Order SARS-CoV-2 (PCR) (Negative) Hepatitis C Ab Screen 10/03/20 Range/Units 15:35 WBC 5.89 (4.8-10.8) K/uL RBC 4.92 (4.7-6.1) M/uL Hgb 14.5 (14.0-18.0) g/dL Hct 43.0 (42-52) % MCV 87.4 (80-100) fL MCH 29.5 (25-34) pg MCHC 33.7 (32-36) g/dL RDW Std Deviation 44.0 (36.4-46.3) fL RDW Coeff of Prudence 13.8 (11.5-14.5) % Plt Count 190 (130-400) K/uL MPV 9.7 (7.4-10.4) fL Immature Gran % (Auto) 0.2 % Neut % (Auto) 64.0 % Lymph % (Auto) 29.5 % [place] % (Auto) 5.6 % Eos % (Auto) 0.5 % Baso % (Auto) 0.2 % Neut # (Auto) 3.77 (1.4-6.5) K/uL Lymph # (Auto) 1.74 (1.2-3.4) K/uL [place] # (Auto) 0.33 (0.11-0.59) K/uL Eos # (Auto) 0.03 (0-0.5) K/uL Baso # (Auto) 0.01 (0-0.2) K/uL Immature Gran # (Auto) 0.01 (0.00-0.02) K/uL Sodium (136-145) mmol/L Potassium (3.5-5.1) mmol/L Chloride (98-107) mmol/L Carbon Dioxide (21-32) mmol/L Anion Gap (3-11) BUN (7-18) mg/dl Creatinine (0.6-1.4) mg/dl Est Cr Clr Drug Dosing ml/min Est GFR ( Amer) ml/min Est GFR (Non-Af Amer) ml/min BUN/Creatinine Ratio (10-20) Glucose (70-99) mg/dl Lactate (0.4-2.0) mmol/L Calcium (8.5-10.1) mg/dl Magnesium (1.8-2.4) mg/dl Total Bilirubin (0.2-1) mg/dl AST (15-37) U/L ALT (12-78) U/L Alkaline Phosphatase (45-117) U/L Total Protein (6.4-8.2) gm/dl Albumin (3.4-5.0) gm/dl Globulin (2.5-4.0) gm/dl Albumin/Globulin Ratio (0.9-2) Urine Color Urine Appearance (Clear) Urine pH (4.5-7.5) Ur Specific [place] (1.000-1.030) Urine Protein (Negative) Urine Glucose (UA) (Negative) Urine Ketones (Negative) Urine Blood (Negative) Urine Nitrite (Negative) Urine Bilirubin (Negative) Urine Urobilinogen (Negative) Ur Leukocyte Esterase (Negative) COVID-19 Eval Order SARS-CoV-2 (PCR) (Negative) Hepatitis C Ab Screen
--- NOTE | 2020-10-04 09:59 | Medical Student Progress Note ---
Date of Service October 04, 2020 Assessment & Plan (1) Abscess of sigmoid colon due to diverticulitis: - Patient with benign exam and endorsing no concerning symptomatology. Afebrile with no leukocytosis. - Advance diet. - Currently on IV Zosyn. Can transition to PO amoxicillin-clavulanate for discharge. - Appreciate surgery recs. Patient to be followed with colonoscopy in 8 weeks. Low-fiber diet until this time. - Establish care with PCP and follow for resolution. Present on Admission?: Yes (2) Smoker: - Discussed cessation. Dispo: Floor FEN: Low fiber. VTE: Ambulatory. Code: Full. Present on Admission?: Yes Admission and Anticipated Discharge Date Admission Date: October 03, 2020 Supervising Attestation I personally examined the patient and verified all flores points of history and exam, discussed case, and agree with decision making with Zac Harrison MS4 Feels fine. Understands why he is here. Hopes to go home soon. No pain. Vitals noted, in general he is awake and alert pleasant no distress. HEENT normocephalic atraumatic mucous membranes moist. Breathing unlabored no accessory muscle use good effort. Abdomen is soft nondistended nontender no masses organomegaly. No guarding no rebound no rigidity. Diverticulitis with abscessdoing well. IV antibiotics through today probably home tomorrow on p.o. antibiotics for a prolonged course. Outpatient colonoscopy in a month or 2. Otherwise as above Subjective Mr. Johnston is a 65-year-old male who does not regularly follow with a healthcare provider who presents for concern of sigmoid colon abscess secondary to diverticulitis on CT scan. He states that he feels well today. He does not endorse any nausea, vomiting, abdominal pain, fevers, or chills. He does state that he has been having night sweats and this started after the resolution of his abdominal pain two weeks ago. He had a bowel movement last evening which he describes as loose. He attributes this to the contrast he received for the CT on 10/02. He is tolerating PO intake well. Review of Systems Review of Systems: All systems reviewed & are unremarkable except as noted in HPI & below Neurologic: + headache(s) Physical Exam Physical Exam: Patient is resting comfortably in bed and is in no acute distress. Constitutional: WD/WN, vitals as above Respiratory: normal respiratory effort, lungs clear to auscultation Cardiovascular: Rate/Rhythm: regular rhythm and + bradycardic Heart Sounds: normal S1 and normal S2; no gallop, no murmur and no cardiac rub Extremities: no calf tenderness and no edema Gastrointestinal (Abdomen): normal bowel sounds, soft, nontender, no hepatosplenomegaly Skin: normal turgor Multiple telangiectasias on face Nevi on back and face Psychiatric: A+Ox3, euthymic affect Results & Data ([facility]) Vital Signs (Past 12 Hours) Vital Signs Temp Pulse Pulse Resp BP Pulse Ox 10/04/20 07:35 36.8 C 50 L 18 132/80 95 10/03/20 22:42 36.9 C 46 L 16 138/86 96 Laboratory Results 10/04/20 10/04/20 10/03/20 06:18 06:18 17:38 WBC 5.57 RBC 4.54 L Hgb 13.3 L Hct 40.3 L MCV 88.8 MCH 29.3 MCHC 33.0 RDW Std Deviation 45.8 RDW Coeff of Prudence 14.1 Plt Count 200 MPV 9.7 Immature Gran % (Auto) 0.0 Neut % (Auto) 47.3 Lymph % (Auto) 46.0 [place] % (Auto) 5.4 Eos % (Auto) 1.1 Baso % (Auto) 0.2 Neut # (Auto) 2.64 Lymph # (Auto) 2.56 [place] # (Auto) 0.30 Eos # (Auto) 0.06 Baso # (Auto) 0.01 Immature Gran # (Auto) 0.00 Sodium 142 Potassium 3.9 Chloride 114 H Carbon Dioxide 24 Anion Gap 4.0 BUN 9 Creatinine 0.71 Est Cr Clr Drug Dosing 138.0 Est GFR ( Amer) 115.7 Est GFR (Non-Af Amer) 99.9 BUN/Creatinine Ratio 12.0 Glucose 94 Lactate 1.4 Calcium 8.6 Magnesium 2.3 Total Bilirubin AST ALT Alkaline Phosphatase Total Protein Albumin Globulin Albumin/Globulin Ratio Urine Color Urine Appearance Urine pH Ur Specific [place] Urine Protein Urine Glucose (UA) Urine Ketones Urine Blood Urine Nitrite Urine Bilirubin Urine Urobilinogen Ur Leukocyte Esterase COVID-19 Eval Order SARS-CoV-2 (PCR) 10/03/20 10/03/20 10/03/20 17:00 17:00 16:00 WBC RBC Hgb Hct MCV MCH MCHC RDW Std Deviation RDW Coeff of Prudence Plt Count MPV Immature Gran % (Auto) Neut % (Auto) Lymph % (Auto) [place] % (Auto) Eos % (Auto) Baso % (Auto) Neut # (Auto) Lymph # (Auto) [place] # (Auto) Eos # (Auto) Baso # (Auto) Immature Gran # (Auto) Sodium Potassium Chloride Carbon Dioxide Anion Gap BUN Creatinine Est Cr Clr Drug Dosing Est GFR ( Amer) Est GFR (Non-Af Amer) BUN/Creatinine Ratio Glucose Lactate Calcium Magnesium Total Bilirubin AST ALT Alkaline Phosphatase Total Protein Albumin Globulin Albumin/Globulin Ratio Urine Color Dark Yellow Urine Appearance Clear Urine pH 7.0 Ur Specific [place] 1.023 Urine Protein Negative Urine Glucose (UA) Negative Urine Ketones Negative Urine Blood Negative Urine Nitrite Negative Urine Bilirubin Negative Urine Urobilinogen Negative Ur Leukocyte Esterase Negative COVID-19 Eval Order Covid19 at [facility] SARS-CoV-2 (PCR) NEGATIVE 10/03/20 10/03/20 10/03/20 15:35 15:35 15:35 WBC 5.89 RBC 4.92 Hgb 14.5 Hct 43.0 MCV 87.4 MCH 29.5 MCHC 33.7 RDW Std Deviation 44.0 RDW Coeff of Prudence 13.8 Plt Count 190 MPV 9.7 Immature Gran % (Auto) 0.2 Neut % (Auto) 64.0 Lymph % (Auto) 29.5 [place] % (Auto) 5.6 Eos % (Auto) 0.5 Baso % (Auto) 0.2 Neut # (Auto) 3.77 Lymph # (Auto) 1.74 [place] # (Auto) 0.33 Eos # (Auto) 0.03 Baso # (Auto) 0.01 Immature Gran # (Auto) 0.01 Sodium 140 Potassium 3.6 Chloride 109 H Carbon Dioxide 26 Anion Gap 5.0 BUN 13 Creatinine 0.85 Est Cr Clr Drug Dosing 115.4 Est GFR ( Amer) 107.5 Est GFR (Non-Af Amer) 92.7 BUN/Creatinine Ratio 15.3 Glucose 117 H Lactate 2.1 H* Calcium 9.0 Magnesium Total Bilirubin 0.3 AST 14 L ALT 28 Alkaline Phosphatase 95 Total Protein 7.5 Albumin 3.5 Globulin 4.0 Albumin/Globulin Ratio 0.9 Urine Color Urine Appearance Urine pH Ur Specific [place] Urine Protein Urine Glucose (UA) Urine Ketones Urine Blood Urine Nitrite Urine Bilirubin Urine Urobilinogen Ur Leukocyte Esterase COVID-19 Eval Order SARS-CoV-2 (PCR) Medications Administered Current Inpatient Medications Acetaminophen (Acetaminophen 325 Mg Tab) 650 mg PO Q4H PRN PRN Reason: pain/fever Stop: 11/02/20 19:59 Sodium Chloride (Nss 1000ml) 1,000 mls @ 100 mls/hr IV .Q10H LAUREN Stop: 11/02/20 19:59 Last Admin: 10/04/20 07:10 Dose: 100 mls/hr Documented by: Piperacillin Sod/Tazobactam (Sod 4.5 gm/ Dextrose) 120 mls @ 30 mls/hr IV Q8H LAUREN; Protocol Stop: 10/13/20 21:59 Last Admin: 10/04/20 06:23 Dose: 30 mls/hr Documented by: Miscellaneous Information (Piperacill/Tazobac Consult Active) 1 ea N/A UD PRN PRN Reason: Consult Stop: 11/02/20 15:07 Ondansetron HCl (Ondansetron Inj 2 Mg/Ml 2 Ml Vial) 4 mg IV Q6H PRN PRN Reason: Nausea Stop: 11/02/20 19:59
--- NOTE | 2020-10-04 20:32 | Billing Data ---
Date of Service October 04, 2020 Coding Level of Care Code 25463 Subseq Obs Care Lvl 2
[2020-10-04] MEDS: AMPICILLIN/SULBACTAM SOD 3,000 MG in 0.9 % SODIUM CHLORIDE 100 ML IV SCH (21:40)
[2020-10-05] MEDS: SODIUM CHLORIDE 0.9% 1000ML 1,000 ML IV SCH (02:17)
[2020-10-05] MEDS: AMPICILLIN/SULBACTAM SOD 3,000 MG in 0.9 % SODIUM CHLORIDE 100 ML IV SCH ×2 (04:33→09:21)
[2020-10-05 06:18] LABS: Hematocrit (blood only) 41.2 % (42-52); Hemoglobin 13.6 g/dL (14.0-18.0); Mean Corpuscular Hemoglobin 29.3 pg (25-34); Mean Corpuscular Volume 88.8 fL (80-100); Platelet Count 211 K/uL (130-400); RDW Coefficient of Variation 13.8 % (11.5-14.5); RDW Standard Deviation 44.9 fL (36.4-46.3); Red Blood Count 4.64 M/uL (4.7-6.1); White Blood Count 5.47 K/uL (4.8-10.8)
[2020-10-05 06:51] LABS: BUN Creatinine Ratio 10.3 (10-20); Calcium 8.9 mg/dl (8.5-10.1); Creatinine Clr Calc Pharmacy 136.1 ml/min; Est GFR (African American) 115.1 ml/min; Est GFR (Non-African American) 99.3 ml/min; Potassium 3.8 mmol/L (3.5-5.1)
--- NOTE | 2020-10-05 10:45 | Discharge Summary ---
Date of Service October 05, 2020 Admission HPI Per Admitting Provider This is 65-year-old male with past medical history of diverticulosis and a recent nephrolithiasis that presents today after abnormal CT scan on the advice of his physician. Patient is a somewhat difficult historian but able to answer questions appropriately. The story as best I can tell, the patient had some abdominal pain over the past 2 weeks. He experienced pain for a week before seeking medical attention. This was a diffuse but not severe. He had no nausea vomiting or fevers with this. I do not notice any weight loss with this. Patient saw his physician and underwent an abdominal ultrasound to rule out biliary disease. This was essentially negative. He tells me he was taking some sort of pain pill at home that he had left over from his renal stone and that this helped the pain. Patient tells me that a CT scan has been ordered but there is issues getting this performed secondary to the insurance company. Symptoms essentially resolved after week. However the patient went for a CAT scan earlier today which found acute diverticulitis within the mid sigmoid along with focal pericolonic perforation and an abscess of 3.2 cm. The time my evaluation, the patient felt well is in no distress. He denied any further abdominal pain. He denied any fevers or chills. He tells me he has been eating normally since the pain resolved and is had no issues. He is in no cardiopulmonary distress. Admission Exam Per Admitting Provider Constitutional: cooperative; no acute distress Neck: trachea midline, no thyromegaly Respiratory: normal respiratory effort Auscultation: lungs clear to auscultation bilaterally; no crackles, no rales, no rhonchi and no wheezes Cardiovascular: Rate/Rhythm: regular rate and regular rhythm Heart Sounds: normal S1 and normal S2; no murmur Gastrointestinal (Abdomen): Inspection/Auscultation: abdomen normal to inspection Percussion/Palpation: abdomen soft; abdomen nontender, no guarding, abdomen not rigid and no hepatosplenomegaly Skin: no rashes, warm and dry Principal Diagnosis abscess of sigmoid colon due to diverticulitis Discharge Exam GENERAL: No acute distress. Well developed and well nourished. Vital signs reviewed as above. A/O x3. EYES: EOMI. Anicteric sclerae. HENT: Moist mucous membranes. RESPIRATORY: Clear to auscultation bilaterally. No wheezing, rales, or rhonchi. CARDIOVASCULAR: Regular rate and rhythm. No murmurs. ABDOMEN: Soft, non-tender and non-distended. No palpable masses. Normal bowel sounds. EXTREMITIES: No edema. Non-tender. SKIN: Warm, dry. No rashes or lesions. NEUROLOGIC: No focal neurological deficits. CN II-XII grossly intact, but not individually tested. PSYCHIATRIC: Cooperative. Appropriate mood and affect. Discharge Data Allergies Allergy/AdvReac Type Severity Reaction Status Date / Time No Known Allergies Allergy Unverified 10/03/20 15:54 Consultations 10/03/20 16:19 ED Decision to Admit Stat 10/03/20 20:00 Consult General Surgery Routine Hospital Course (1) Abscess of sigmoid colon due to diverticulitis: Abscess of sigmoid colon due to diverticulitis: - Patient with benign exam and endorsing no concerning symptomatology. Afebrile with no leukocytosis. - Diet advanced. - Received IV Zosyn. Transitioned to Augmentin on discharge; Augmentin 875 BID x2 weeks. - Recommend repeat abd CT for f/u in ~3-4 weeks. - Patient to be followed with colonoscopy in 8 weeks. Low-fiber diet until this time. Smoker - Discussed cessation. - Continue to encourage cessation. Will f/u as outpatient. (2) Smoker: Total Time Total Time Spent Total Time Spent (In Minutes): <30 Discharge Plan Discharge Items Patient Disposition: Home - Self-Care Reason For Visit: DIVERTICULITIS Discharge Diagnosis: diverticular abscess Condition on Discharge: Good Activity: Resume your previous activity Non-emergency contact: Primary Care Provider Call non-emergency contact if: you have any medication questions Follow-up/Referrals: Shruthi Braun DO [Resident] - 10/10/20 4:10 pm (Your appointment is scheduled for Thursday10/10/20 at 4:10 PM) Diet: Low Fiber Addtl Attending Provider Instructions: Mr. Johnston, It was our pleasure to care for you at [facility] from 10/03/20 to 10/05/20. You were admitted with an infection (abscess) in the diverticulum (outpouching of the colon). You received IV fluids and IV antibiotics. You have done very well and have not had any recurrent abdominal pain or symptoms. At this time, we feel that it is safe for you to go home. You are being transitioned to an oral antibiotic, Augmentin. Please complete the complete course of Augmentin for 2 weeks. Please follow up with Dr. Braun - an appointment has been scheduled for you for 10/10/2020 at 4:10 PM. The office is located in the building across from the hospital - [address] [place] [address]. Please call the office at [phone] if you cannot keep this appointment. Return to the ER if you have worsening symptoms including abdominal pain or fever. Addtl Grand Scribe Provider Instructions: Surgical discharge instructions/recommendations: You will need a colonoscopy in 8 weeks after acute phase of diverticulitis has healed Recommend low fiber diet while in acute phase and then high fiber diet after colonoscopy Finish entire course of antibiotics as directed Pending Studies at Discharge: No Stand-Alone Forms: My [employer], Smoking Cessation Medications and DC Order Prescriptions: New amoxicillin-pot clavulanate [Augmentin] 875-125 mg tablet 1 tab PO BID 14 Days Qty: 28 RF: 0 No Action No Known Home Medications RF: 0 Discharge Orders: Discharge Order (Routine); Ordered 10/05/20 Ordered By: Shruthi Snow/Other Patient Handouts: Low-Fiber Diet, Preventing Deep Vein Thrombosis Admission Data Admit Date/Time: 10/03/20 17:05 Attending Provider: Tho Saravia Admit Provider: Fuentes Barnes Primary Care Provider: Eleanor Boone Other Providers: Flora Contreras ; Fuentes Barnes Other Interventions: Discharge Summary Assessment (RN) Last Done: 10/05/20 11:40 Supervising Physician Co-Signing Physician Notes I personally examined the patient and verified all flores points of history and exam, discussed case, and agree with decision making with Dr Braun Feels fine. Feeling ready to go home. Vitals noted, in general he is awake and alert pleasant no distress. HEENT normocephalic atraumatic mucous membranes moist. Breathing unlabored no accessory muscle use good effort. No focal neuro deficits. Diverticulitis with abscessdoing well. Was on IV Zosyn for about 2 days. Appears totally stable for home. Outpatient treatment with Augmentin to complete 14 days of therapy. Outpatient follow-up, possibly will need repeat CT scan to evaluate for clearing, and has had very little symptoms since the initial formation of the abscess. Colonoscopy in 6 to 8 weeks. Otherwise as above Resident Activity Tracking Resident Involvement: Resident Care Provided Care Provided: Adult [facility]
--- NOTE | 2020-10-05 12:19 | Surgery Progress Note ---
Date of Service doing fine, no abdominal pain, tolerated diet, normal WBC, no fever, October 05, 2020 Assessment & Plan (1) Acute diverticulitis: Complicated diverticulitis with microperforation and 3.2 cm abscess afebrile no leukocytosis abdominal pain resolved tolerated clear liquids Plan: Discussed with patient that he is clinically improving, pain resolved, afebrile and no leukocytosis however given the abscess formation will need prolonged antibiotics. Likely total of 14 days of abx. Continue IV Zosyn Advance diet to full liquids will need outpatient colonoscopy in 8 weeks low fiber diet on discharge during acute phase and transition to high fiber diet after colonoscopy Dr. Contreras has seen and examined pt, agrees with above. 10/05/2020 12: 17 PM F/u diverticulitis with abscess, doing fine, pt can be discharged today with 14 days po antibiotic, cipro + flagyl, F/U me 2 weeks, Thanks, Admission and Anticipated Discharge Date Admission Date: October 03, 2020 Physical Exam Constitutional: WD/WN, vitals as above well developed and well nourished Eyes: PERRL, conjunctivae normal, anicteric sclerae ENMT: external ear and nose normal, oropharynx normal Neck: trachea midline, no thyromegaly Respiratory: normal respiratory effort, lungs clear to auscultation normal respiratory effort Cardiovascular: RRR, no murmur, no edema Rate/Rhythm: regular rate and regular rhythm Gastrointestinal (Abdomen): normal bowel sounds, soft, nontender, no hepatosplenomegaly Percussion/Palpation: abdomen soft Musculoskeletal: no cyanosis or clubbing, extremities motor strength 5/5 Skin: no rashes, warm and dry Neurologic: awake Psychiatric: Orientation: alert and oriented x 3 Results & Data ([facility]) Vital Signs (Past 12 Hours) Vital Signs Temp Pulse Pulse Resp BP Pulse Ox 10/05/20 11:40 36.9 C 50 L 49 L 19 150/89 H 98 10/05/20 07:47 36.9 C 49 L 19 150/89 H 98 Laboratory Results Abnormal lab results 10/05/20 10/05/20 Range/Units 05:55 05:55 RBC 4.64 L (4.7-6.1) M/uL Hgb 13.6 L (14.0-18.0) g/dL Hct 41.2 L (42-52) % Chloride 113 H (98-107) mmol/L
--- NOTE | 2020-10-05 19:31 | Billing Data ---
Date of Service October 05, 2020 Coding Level of Care Code D/C Day Management <30 mins
--- NOTE | 2020-10-05 19:31 | Billing Data ---
Date of Service October 05, 2020 Coding Level of Care Code 81290 OBS Care - Discharge Comment disregard <30mins dc - is OBS dc, thanks
== END 2020-10-05 13:48 | disposition home or self-care (01) ==
LOC: ED 14:25 → 3N 14:25 → SUATTDRO 17:05 → 3N 19:43

== ENCOUNTER 2022-12-24 08:36 | Inpatient (IN) ==
[2022-12-24] MEDS ORDERED: ATROPINE SULFATE 0.1 MG/ML 10ML SYR IV STA (09:03)
[2022-12-24] MEDS ORDERED: SODIUM CHLORIDE 0.9% 1000ML 1,000 ML IV STA (09:03)
[2022-12-24 09:23] LABS: Basophils # (auto) 0.03 K/uL (0-0.2); Basophils % (auto) 0.5 %; Eosinophils # (auto) 0.06 K/uL (0-0.50); Hematocrit (blood only) 51.3 % (42.0-52.0); Hemoglobin 17.2 g/dl (14.0-18.0); Immature Granulocytes # (auto) 0.01 K/uL (0.01-0.20); Immature Granulocytes % (auto) 0.2 %; Lymphocytes # (auto) 2.66 K/uL (1.2-3.4); Lymphocytes % (auto) 46.4 %; Mean Corpuscular Hemoglobin 29.4 pg (25.0-34.0); Mean Corpuscular Hgb Conc 33.5 g/dL (32.0-36.0); Mean Corpuscular Volume 87.7 fL (80.0-100.0); Mean Platelet Volume 10.6 fL (9.4-12.4); Monocytes # (auto) 0.38 K/uL (0.11-0.59); Monocytes % (auto) 6.6 %; Neutrophils # (auto) 2.59 K/uL (1.40-6.50); Neutrophils % (auto) 45.3 %; Platelet Count 176 K/uL (130-400); RDW Coefficient of Variation 13.7 % (11.5-14.5); RDW Standard Deviation 43.8 fL (36.4-46.3); Red Blood Count 5.85 M/uL (4.70-6.10); White Blood Count 5.73 K/ul (4.8-10.8)
[2022-12-24 09:39] LABS: Alanine Aminotransferase 25 U/L (7-52); Albumin Globulin Ratio 1.4 (0.9-2); Albumin Level 4.5 gm/dl (3.4-5.0); Alkaline Phosphatase 76 U/L (34-104); Anion Gap 5 (3-11); BUN Creatinine Ratio 22.4 (10-20); Bilirubin,Total 0.8 mg/dl (0.2-1.0); Blood Urea Nitrogen 19 mg/dl (6-23); Calcium 9.4 mg/dl (8.6-10.3); Carbon Dioxide 25 mmol/L (21-32); Chloride 109 mmol/L (98-107); Creatinine Clr Calc Pharmacy 107.3 ml/min; Est GFR (Non-African American) 91.4 ml/min; Globulin 3.3 gm/dl (2.5-4.0); Glucose 100 mg/dl (70-99(Fasting)); Magnesium 2.2 mg/dl (1.7-2.4); Phosphorus 2.7 mg/dl (2.5-4.9); Sodium 139 mmol/L (136-145); Total Protein 7.8 gm/dl (6.0-8.3)
[2022-12-24 09:43] LABS: Troponin I High Sensitivity 11.3 pg/ml (0-20)
--- NOTE | 2022-12-24 10:34 | XRay Report ---
XR chest 1V portable CLINICAL HISTORY: Dysrhythmia TECHNIQUE: Single frontal radiograph of the chest was obtained. Comparison: Comparison is made to chest radiograph 06/26/2014 FINDINGS: No lines and tubes are seen. Cardiomegaly is noted. Prominence and cephalization of the vasculature i s seen. No evidence of pleural effusion or pneumothorax. IMPRESSION: Cardiomegaly and mild pulmonary edema. ACT 112: Negative or not required by law. Electronically signed by: Mich Huang M.D. 12/24/2022 10:32 AM
[2022-12-24 10:47] LABS: Potassium 4.5 mmol/L (3.5-5.1)
[2022-12-24 11:12] LABS: Lyme Ab IgG w/WB Rflx Negative (Negative); Lyme Ab IgM w/WB Rflx Negative (Negative)
--- NOTE | 2022-12-24 11:22 | History & Physical Report ---
Date of Service December 24, 2022 Assessment & Plan (1) Complete heart block: Plan: IMPRESSION: 67-year-old male presented to the emergency department with episodes of dizziness he was found to be in complete heart block. * EKG demonstrates complete heart block originally with a rate in the 30s. He was treated with adenosine without response. Heart rate has now been in the 20s. Thankfully, the patient remains asymptomatic at rest. * Lyme titers have returned and are negative. * Discussed the case with Dr. Jensen of cardiology. He will reach out to electrophysiology for guidance for need for permanent pacemaker placement. * Will evaluate for secondary causes. We will order echocardiogram that may hint in structural changes and underlying CAD and a daily smoker who is also obese and without regular care. We will order A1c and cholesterol panel. * Pacer pads to remain in place. * Admit to ICU for close monitoring. (2) Dizziness: Plan: * Secondary to #1. (3) Smoker: Plan: * Patient with a greater than 20 pack year history. Currently smoke 1/2 ppd. * Encourage smoking cessation. * Patient declines nicotine patches. * Moving forward, the patient qualifies for routine yearly LDCT lung cancer screening which can be managed in the outpatient setting. (4) Pulmonary edema: Plan: * As noted on CXR. * Patient asymptomatic and saturating well on room air. * Will see if this improves with correction of underlying cardiac conduction delay and improved forward flow. * If s/s were to change, patient would benefit from NIV (preferably CPAP) if needed. History of Present Illness Chief Complaint: Complete Heart Block, Dizziness Primary Care Provider: NO PCP Patient is a 67-year-old male with no reported past medical history other than prior episode of diverticulitis and a daily smoker who presented to the emergency department after seeing his primary care provider's office for episodes of dizziness. Upon their evaluation, the patient was noted to be profoundly bradycardic. He was directed to the emergency department for ongoing care. Upon evaluation in the emergency department, the patient was noted to be in a complete heart block with a rate in the 30s. He was not found to be hypotensive. He is asymptomatic at rest. Patient reports no history of similar symptoms in the past. He does not take antihypertensives and specifically no use of beta-iain or calcium channel blockers. He takes no routine medications daily at all. [place] him in the last year, but no tick bites in greater than 2 years. He has had no rashes. No recent febrile illnesses. Other than occasional episodes of dizziness, he offers no complaints at this time. Patient reports smoking approximately half pack a day for the last 40 or so years. He denies complaints of chronic cough, shortness of breath, or chest discomfort. Allergies Allergy/AdvReac Type Severity Reaction Status Date / Time No Known Allergies Allergy Unverified 10/03/20 15:54 Home Medications Medication Instructions Recorded Confirmed Type No Known Home Medications 10/03/20 10/03/20 History Past Med/Surg History Medical History Kidney stones Obesity Surgical History S/P right knee arthroscopy Social History Smoking Status: Current every day smoker Tobacco Type: Cigarettes Cigarettes Per Day: 20; Second Hand Exposure: No; Do You Dip or Chew Tobacco: No; Hx Alcohol Use: Yes Alcohol type: beer Hx Substance Use: No Preferred Language: Guyanese Communication Ability: Effective Informatics Consultant Required: No Beliefs That Will Affect Care: None marital status: Current Living Situation: Spouse current occupational status: employed Other Information That Helps Us Care for You: No Feels Safe at Home: Yes Safety Concerns: Feels Safe At This Time Assistive Devices: None and Glasses Review of Systems Review of Systems: A complete 10 point review of systems was reviewed with the patient with pertinent positives and negatives as per history of present illness. All else were negative. Physical Exam Physical Exam: VITAL SIGNS - Vital signs and nursing notes were reviewed. GENERAL - 67-year-old male appearing his stated age who is in no acute distress. Communicates well with provider and answers questions appropriately. SKIN - Without rashes. HEAD - NC/AT. EYES - PERRL with EOMI bilaterally. Sclera anicteric. EARS - No deformities of external structures noted on gross examination bilaterally. NOSE - Midline and without cyanosis. MOUTH/OROPHARYNX - Without perioral cyanosis. NECK - Neck with FROM. LUNGS - Chest wall symmetric without accessory muscle use, intercostals retractions, or central cyanosis. Normal vesicular breath sounds CTA B/L. No wheezes, rales, or rhonchi appreciated. CARDIAC - Bradycardia. No murmur, rubs, or gallops appreciated. ABDOMEN - Abdominal contour obese without pulsations or visible masses. BS normoactive all four quadrants. No tenderness, palpable masses, hepatosplenomegaly, or ascites noted. EXTREMITIES - No clubbing or peripheral cyanosis. No pretibial edema present. +3/5 radial and dorsalis pedis pulses palpated throughout. +5/5 strength noted in UE/LE bilaterally. NEUROLOGIC - Cranial nerves II through XII grossly intact. Sensory intact to light touch throughout. PSYCH - A&Ox3 and cooperates fully with examiner. Pt is very pleasant and interacts well with examiner. Results & Data Results & Data Vital Signs (Past 12 Hours) Vital Signs Temp Pulse Pulse Resp BP Pulse Ox O2 Del Method 12/24/22 10:27 27 L 18 168/92 H 99 12/24/22 09:18 32 L 18 124/62 99 12/24/22 09:10 31 L 13 98 12/24/22 09:00 31 L 13 12/24/22 08:51 30 L 17 12/24/22 08:36 31 L 18 85/62 L 98 Room Air 12/24/22 08:36 98 Room Air 12/24/22 08:52 31 L 12/24/22 08:39 36.6 C 30 L 18 98 Room Air ECG Additional Comments: EKG was reviewed and demonstrates a third-degree heart block at a rate of [address] changes noted. QTc 395 ms. Code Status & VTE Plan VTE Prophylaxis Plan VTE Prophylaxis will be ordered: Yes Supervising Physician Co-Signing Physician Notes Patient was seen and examined independently I discussed the case with [facility] I reviewed pertinent past medical social family history and also the plan of care and agree with the plan of care. I visited with the patient his independently. Patient's been having dizziness over the last few days worse than 1 day prior. Found to be in complete heart block in the emergency department. Does not recall any tick bite and Lyme testing is negative. Patient otherwise has been healthy typically does not take any medications last admission was for diverticulitis. He occasionally has pain in his left lower abdomen and was recently evaluated and found not to have an acute flare. Physical examination his blood pressure stable heart rate is in the 20s it does appear to be complete heart block on the monitor and on EKG. His chest x-ray shows mild congestive change however he does not examine to be in heart failure nor does he have hypoxia. Subsequent he will be admitted to the intensive care unit due to his complete heart block cardiology will be consulted for consideration of permanent pacemaker. Any exceptions will be noted below PG Care Time/CCT Total # of Minutes Spent Total Time Spent with Patient: Total time spent is greater than 50% in coordination of care (as documented) at patient's floor/unit and/or counseling patient: Coding Level of Care Code 35075 INT INP/OBS CARE 3/75MIN Diagnoses Complete heart block I44.2 Dizziness R42 Smoker F17.200 Pulmonary edema J81.1 Time Spent (min) 45
[2022-12-24 11:25] LABS: Adenovirus PCR Not Detected (NotDetected); Bordetella parapertussis PCR Not Detected (NotDetected); Bordetella pertussis PCR Not Detected (NotDetected); Chlamydia pneumoniae PCR Not Detected (NotDetected); Coronavirus 229E PCR Not Detected (NotDetected); Coronavirus CoV-2 (COVID19)PCR Not Detected (NotDetected); Coronavirus HKU1 PCR Not Detected (NotDetected); Coronavirus NL63 PCR Not Detected (NotDetected); Coronavirus OC43PCR Not Detected (NotDetected); Human Metapneumovirus PCR Not Detected (NotDetected); Influenza A PCR Not Detected (NotDetected); Influenza B PCR Not Detected (NotDetected); Mycoplasma pneumoniae PCR Not Detected (NotDetected); Parainfluenza Virus 1 PCR Not Detected (NotDetected); Parainfluenza Virus 2 PCR Not Detected (NotDetected); Parainfluenza Virus 3 PCR Not Detected (NotDetected); Parainfluenza Virus 4 PCR Not Detected (NotDetected); Respiratory Syncytial VirusPCR Not Detected (NotDetected); Rhinovirus/Enterovirus PCR Not Detected (NotDetected)
[2022-12-24] MEDS: ICU Protocol for HYPERglycemia SCH ×3 (12:18→20:13)
[2022-12-24] MEDS ORDERED: ATROPINE SULFATE 0.1 MG/ML 10ML SYR IV ONE (12:20)
--- NOTE | 2022-12-24 14:05 | Emergency Department Note ---
Impression & Plan Complete heart block, Pulmonary congestion ED Provider Note CHIEF COMPLAINT: Bradycardia, shortness of breath HISTORY OF PRESENT ILLNESS: This 67-year-old male patient with past medical history of diverticulitis, obesity, tobacco smoker presents to the emergency department with complaints of dizziness on exertion. The patient has been experiencing some fatigue and shortness of breath with exertion for the last week. He made an appointment with his PCP and was noted to have a "first-deg ree" heart block on EKG. He was sent to the emergency department for further management. Patient is noted to be hypotensive at triage, he is sitting comfortably in the bed now and has no complaints. He denies any recent fevers, chills, vomiting, diarrhea. He denies taking any medications at home. REVIEW OF SYSTEMS: A review of systems was performed with positives and pertinent negatives listed in the history of present illness. 10 systems were reviewed and are otherwise negative. ALLERGIES: see below MEDICATIONS: see below PMH: see below SOCIAL HISTORY: see below DDx: Lyme related heart block, metabolic abnormality, electrolyte dysfunction, ACS, PE among others PHYSICAL EXAM: Vital signs reviewed. General: Well-appearing 67-year-old male, in no significant distress. HEENT: No scleral icterus, PERRLA, neck supple. Atraumatic. Cardiovascular: Marked bradycardia, no extra sounds Pulmonary: Clear to auscultation bilaterally, normal work of breathing. Abdomen: Soft, nontender, nondistended, positive bowel sounds. Musculoskeletal: Atraumatic, no peripheral edema. Neurologic: Patient awake alert and oriented x 3, speech is clear Skin: Warm, dry, no rash EMERGENCY DEPARTMENT COURSE/MDM: This patient was evaluated and appeared to be in no significant distress. IV access was obtained and laboratory work was drawn. The patient was placed on the manager cardiac cath noted to be in a third- degree heart block. External pacer pads were applied, but not utilized yet. blo od pressure was initially hypotensive and the patient was given 1 L of normal saline solution. He was also given one half amp of atropine without any improvement. Blood pressure did improve after the fluid bolus. Chest x-ray was performed and reveals cardiomegaly with congestive change. Patient's heart rate did trend down into the 20s. Blood pressure remained stable. I did speak with cardiology, Dr. Jensen who felt medical admission was warranted. The Lyme titer and troponin are both negative. Hospitalist service was contacted for admission. The critical care team and interventional cardiology team notified. Patient will be taken for permanent pacer today by report. Patient is aware of the plan and agrees. MONITORING: An order for cardiac monitoring was placed and the patient is noted to be in a third-degree heart block at 30 beats per minute. RADIOLOGY: Chest x-ray to my interpretation reveals no evidence of focal lung consolidation however there is evidence of pulmonary vascular congestion and cardiomegaly. Otherwise defer to radiology's overread EKG: To my interpretation reveals a third-degree heart block at 30 bpm, RBBB, QTc 395, when compared to previous dated 03/21/20, 3rd degree HB has replaced sinus rhythm. DISPOSITION: Admit I have personally spent greater than 30 minutes of critical care time in the direct management of this patient. This includes bedside care, interpretation of diagnostic studies, and testing, discussion with consultants, patient, and family members, and other required patient management activities. This 30 minutes is in excess of all separately billable procedures. Past Med/Surg History Medical History Kidney stones Obesity Surgical History S/P right knee arthroscopy Social History Smoking Status: Current every day smoker Tobacco Type: Cigarettes Cigarettes Per Day: 20; Second Hand Exposure: No; Do You Dip or Chew Tobacco: No; Hx Alcohol Use: Yes Alcohol type: beer Hx Substance Use: No Preferred Language: Mauritanian Communication Ability: Effective [employer] Required: No Beliefs That Will Affect Care: None marital status: Current Living Situation: Spouse current occupational status: employed Other Information That Helps Us Care for You: No Feels Safe at Home: Yes Safety Concerns: Feels Safe At This Time Assistive Devices: None and Glasses Allergies Allergies Allergy/AdvReac Type Severity Reaction Status Date / Time No Known Allergies Allergy Unverified 10/03/20 15:54 Home Meds Home Medications Medication Instructions Recorded Confirmed No Known Home Medications 10/03/20 12/24/22 Results & Data (ED) Vital Signs Vital Signs - 24 hr 12/24/22 08:39 12/24/22 08:52 12/24/22 08:36 Temperature 36.6 C Temperature Source Temporal Artery Scan Pulse Rate 30 L 31 L Pulse Rate [Apical] Pulse Rate from SpO2 Sensor Respiratory Rate 18 Respiratory Effort / Characteristics Non-Labored Spontaneous Respiratory Depth Normal Respiratory Pattern Regular Blood Pressure [Left Arm] Blood Pressure Mean [Left Arm] Pulse Oximetry 98 98 Oxygen Delivery Method Room Air Room Air Sepsis Recent Fever Within 48 Hours No Sepsis New/Unexplained Change in Mental Status No Sepsis Action Taken by Nursing No Action Required 12/24/22 08:36 12/24/22 08:51 12/24/22 09:00 Temperature Temperature Source Pulse Rate 30 L 31 L Pulse Rate [Apical] 31 L Pulse Rate from SpO2 Sensor Respiratory Rate 18 17 13 Respiratory Effort / Characteristics Respiratory Depth Respiratory Pattern Blood Pressure [Left Arm] 85/62 L Blood Pressure Mean [Left Arm] 69 Pulse Oximetry 98 Oxygen Delivery Method Room Air Sepsis Recent Fever Within 48 Hours Sepsis New/Unexplained Change in Mental Status Sepsis Action Taken by Nursing 12/24/22 09:10 12/24/22 09:18 12/24/22 10:27 Temperature Temperature Source Pulse Rate 31 L Pulse Rate [Apical] 32 L 27 L Pulse Rate from SpO2 Sensor 31 L Respiratory Rate 13 18 18 Respiratory Effort / Characteristics Non-Labored Respiratory Depth Normal Respiratory Pattern Regular Blood Pressure [Left Arm] 124/62 168/92 H Blood Pressure Mean [Left Arm] 82 117 Pulse Oximetry 98 99 99 Oxygen Delivery Method Sepsis Recent Fever Within 48 Hours Sepsis New/Unexplained Change in Mental Status Sepsis Action Taken by Nursing 12/24/22 09:20 12/24/22 09:21 12/24/22 09:30 Temperature Temperature Source Pulse Rate 32 L 32 L 35 L Pulse Rate [Apical] Pulse Rate from SpO2 Sensor 32 L 32 L 30 L Respiratory Rate 16 13 18 Respiratory Effort / Characteristics Respiratory Depth Respiratory Pattern Blood Pressure [Left Arm] Blood Pressure Mean [Left Arm] Pulse Oximetry 98 98 97 Oxygen Delivery Method Sepsis Recent Fever Within 48 Hours Sepsis New/Unexplained Change in Mental Status Sepsis Action Taken by Nursing 12/24/22 09:31 12/24/22 09:40 12/24/22 09:50 Temperature Temperature Source Pulse Rate 31 L 34 L 30 L Pulse Rate [Apical] Pulse Rate from SpO2 Sensor 32 L 31 L 30 L Respiratory Rate 12 12 18 Respiratory Effort / Characteristics Respiratory Depth Respiratory Pattern Blood Pressure [Left Arm] Blood Pressure Mean [Left Arm] Pulse Oximetry 96 97 98 Oxygen Delivery Method Sepsis Recent Fever Within 48 Hours Sepsis New/Unexplained Change in Mental Status Sepsis Action Taken by Nursing 12/24/22 10:00 12/24/22 10:10 12/24/22 10:20 Temperature Temperature Source Pulse Rate 29 L 37 L 28 L Pulse Rate [Apical] Pulse Rate from SpO2 Sensor 30 L 29 L 29 L Respiratory Rate 9 L 13 12 Respiratory Effort / Characteristics Respiratory Depth Respiratory Pattern Blood Pressure [Left Arm] Blood Pressure Mean [Left Arm] Pulse Oximetry 94 96 98 Oxygen Delivery Method Sepsis Recent Fever Within 48 Hours Sepsis New/Unexplained Change in Mental Status Sepsis Action Taken by Nursing 12/24/22 10:40 12/24/22 10:50 12/24/22 11:00 Temperature Temperature Source Pulse Rate 27 L 25 L 26 L Pulse Rate [Apical] Pulse Rate from SpO2 Sensor 27 L 25 L 26 L Respiratory Rate 13 11 L 13 Respiratory Effort / Characteristics Respiratory Depth Respiratory Pattern Blood Pressure [Left Arm] Blood Pressure Mean [Left Arm] Pulse Oximetry 99 97 98 Oxygen Delivery Method Sepsis Recent Fever Within 48 Hours Sepsis New/Unexplained Change in Mental Status Sepsis Action Taken by Nursing 12/24/22 11:10 Temperature Temperature Source Pulse Rate 24 L Pulse Rate [Apical] Pulse Rate from SpO2 Sensor 25 L Respiratory Rate 27 H Respiratory Effort / Characteristics Respiratory Depth Respiratory Pattern Blood Pressure [Left Arm] Blood Pressure Mean [Left Arm] Pulse Oximetry 96 Oxygen Delivery Method Sepsis Recent Fever Within 48 Hours Sepsis New/Unexplained Change in Mental Status Sepsis Action Taken by Group Home Medications Current Medication List: was personally reviewed by me Laboratory Data Attestation: I reviewed the patient's lab results. 12/24/22 08:55 12/24/22 10:06 Lab Results 12/24/22 12/24/22 12/24/22 Range/Units 08:55 08:55 08:55 WBC 5.73 (4.8-10.8) K/ul RBC 5.85 (4.70-6.10) M/uL Hgb 17.2 (14.0-18.0) g/dl Hct 51.3 (42.0-52.0) % MCV 87.7 (80.0-100.0) fL MCH 29.4 (25.0-34.0) pg MCHC 33.5 (32.0-36.0) g/dL RDW Std Deviation 43.8 (36.4-46.3) fL RDW Coeff of Prudence 13.7 (11.5-14.5) % Plt Count 176 (130-400) K/uL MPV 10.6 (9.4-12.4) fL Immature Gran % (Auto) 0.2 % Neut % (Auto) 45.3 % Lymph % (Auto) 46.4 % [place] % (Auto) 6.6 % Eos % (Auto) 1.0 % Baso % (Auto) 0.5 % Neut # (Auto) 2.59 (1.40-6.50) K/uL Lymph # (Auto) 2.66 (1.2-3.4) K/uL [place] # (Auto) 0.38 (0.11-0.59) K/uL Eos # (Auto) 0.06 (0-0.50) K/uL Baso # (Auto) 0.03 (0-0.2) K/uL Immature Gran # (Auto) 0.01 (0.01-0.20) K/uL Sodium 139 (136-145) mmol/L Potassium TNP Chloride 109 H (98-107) mmol/L Carbon Dioxide 25 (21-32) mmol/L Anion Gap 5 (3-11) BUN 19 (6-23) mg/dl Creatinine 0.85 (0.6-1.4) mg/dl Est Cr Clr Drug Dosing 107.3 ml/min Est GFR ( Amer) 106.0 ml/min Est GFR (Non-Af Amer) 91.4 ml/min BUN/Creatinine Ratio 22.4 H (10-20) Glucose 100 H (70-99(Fasting)) mg/dl Calcium 9.4 (8.6-10.3) mg/dl Phosphorus 2.7 (2.5-4.9) mg/dl Magnesium 2.2 (1.7-2.4) mg/dl Total Bilirubin 0.8 (0.2-1.0) mg/dl AST TNP ALT 25 (7-52) U/L Alkaline Phosphatase 76 (34-104) U/L Troponin I High Sens 11.3 (0-20) pg/ml Total Protein 7.8 (6.0-8.3) gm/dl Albumin 4.5 (3.4-5.0) gm/dl Globulin 3.3 (2.5-4.0) gm/dl Albumin/Globulin Ratio 1.4 (0.9-2) TSH (0.300-4.500) uIu/ml Adenovirus (PCR) (NotDetected) B. pertussis DNA (PCR) (NotDetected) B.parapertussis DNA PCR (NotDetected) Lyme Disease IgG Ab Cancelled Lyme Disease IgM Ab Cancelled C. pneumoniae DNA (PCR) (NotDetected) Coronavirus OC43 (PCR) (NotDetected) Coronavirus HKU1 (PCR) (NotDetected) Coronavirus 229E (PCR) (NotDetected) SARS-CoV-2 (PCR) (NotDetected) Coronavirus NL63 (PCR) (NotDetected) Human Metapneumovir PCR (NotDetected) Influenza Type A (PCR) (NotDetected) Influenza Type B (PCR) (NotDetected) M. pneumoniae (PCR) (NotDetected) Parainfluenza 1 (PCR) (NotDetected) Parainfluenza 2 (PCR) (NotDetected) Parainfluenza 3 (PCR) (NotDetected) Parainfluenza 4 (PCR) (NotDetected) RSV (PCR) (NotDetected) Entero/Rhino (PCR) (NotDetected) 12/24/22 12/24/22 12/24/22 Range/Units 08:55 10:06 10:06 WBC (4.8-10.8) K/ul RBC (4.70-6.10) M/uL Hgb (14.0-18.0) g/dl Hct (42.0-52.0) % MCV (80.0-100.0) fL MCH (25.0-34.0) pg MCHC (32.0-36.0) g/dL RDW Std Deviation (36.4-46.3) fL RDW Coeff of Prudence (11.5-14.5) % Plt Count (130-400) K/uL MPV (9.4-12.4) fL Immature Gran % (Auto) % Neut % (Auto) % Lymph % (Auto) % [place] % (Auto) % Eos % (Auto) % Baso % (Auto) % Neut # (Auto) (1.40-6.50) K/uL Lymph # (Auto) (1.2-3.4) K/uL [place] # (Auto) (0.11-0.59) K/uL Eos # (Auto) (0-0.50) K/uL Baso # (Auto) (0-0.2) K/uL Immature Gran # (Auto) (0.01-0.20) K/uL Sodium (136-145) mmol/L Potassium 4.5 Chloride (98-107) mmol/L Carbon Dioxide (21-32) mmol/L Anion Gap (3-11) BUN (6-23) mg/dl Creatinine (0.6-1.4) mg/dl Est Cr Clr Drug Dosing ml/min Est GFR ( Amer) ml/min Est GFR (Non-Af Amer) ml/min BUN/Creatinine Ratio (10-20) Glucose (70-99(Fasting)) mg/dl Calcium (8.6-10.3) mg/dl Phosphorus (2.5-4.9) mg/dl Magnesium (1.7-2.4) mg/dl Total Bilirubin (0.2-1.0) mg/dl AST 12 L ALT (7-52) U/L Alkaline Phosphatase (34-104) U/L Troponin I High Sens (0-20) pg/ml Total Protein (6.0-8.3) gm/dl Albumin (3.4-5.0) gm/dl Globulin (2.5-4.0) gm/dl Albumin/Globulin Ratio (0.9-2) TSH 3.727 (0.300-4.500) uIu/ml Adenovirus (PCR) (NotDetected) B. pertussis DNA (PCR) (NotDetected) B.parapertussis DNA PCR (NotDetected) Lyme Disease IgG Ab Negative Lyme Disease IgM Ab Negative C. pneumoniae DNA (PCR) (NotDetected) Coronavirus OC43 (PCR) (NotDetected) Coronavirus HKU1 (PCR) (NotDetected) Coronavirus 229E (PCR) (NotDetected) SARS-CoV-2 (PCR) (NotDetected) Coronavirus NL63 (PCR) (NotDetected) Human Metapneumovir PCR (NotDetected) Influenza Type A (PCR) (NotDetected) Influenza Type B (PCR) (NotDetected) M. pneumoniae (PCR) (NotDetected) Parainfluenza 1 (PCR) (NotDetected) Parainfluenza 2 (PCR) (NotDetected) Parainfluenza 3 (PCR) (NotDetected) Parainfluenza 4 (PCR) (NotDetected) RSV (PCR) (NotDetected) Entero/Rhino (PCR) (NotDetected) 12/24/22 Range/Units 10:13 WBC (4.8-10.8) K/ul RBC (4.70-6.10) M/uL Hgb (14.0-18.0) g/dl Hct (42.0-52.0) % MCV (80.0-100.0) fL MCH (25.0-34.0) pg MCHC (32.0-36.0) g/dL RDW Std Deviation (36.4-46.3) fL RDW Coeff of Prudence (11.5-14.5) % Plt Count (130-400) K/uL MPV (9.4-12.4) fL Immature Gran % (Auto) % Neut % (Auto) % Lymph % (Auto) % [place] % (Auto) % Eos % (Auto) % Baso % (Auto) % Neut # (Auto) (1.40-6.50) K/uL Lymph # (Auto) (1.2-3.4) K/uL [place] # (Auto) (0.11-0.59) K/uL Eos # (Auto) (0-0.50) K/uL Baso # (Auto) (0-0.2) K/uL Immature Gran # (Auto) (0.01-0.20) K/uL Sodium (136-145) mmol/L Potassium Chloride (98-107) mmol/L Carbon Dioxide (21-32) mmol/L Anion Gap (3-11) BUN (6-23) mg/dl Creatinine (0.6-1.4) mg/dl Est Cr Clr Drug Dosing ml/min Est GFR ( Amer) ml/min Est GFR (Non-Af Amer) ml/min BUN/Creatinine Ratio (10-20) Glucose (70-99(Fasting)) mg/dl Calcium (8.6-10.3) mg/dl Phosphorus (2.5-4.9) mg/dl Magnesium (1.7-2.4) mg/dl Total Bilirubin (0.2-1.0) mg/dl AST ALT (7-52) U/L Alkaline Phosphatase (34-104) U/L Troponin I High Sens (0-20) pg/ml Total Protein (6.0-8.3) gm/dl Albumin (3.4-5.0) gm/dl Globulin (2.5-4.0) gm/dl Albumin/Globulin Ratio (0.9-2) TSH (0.300-4.500) uIu/ml Adenovirus (PCR) Not Detected (NotDetected) B. pertussis DNA (PCR) Not Detected (NotDetected) B.parapertussis DNA PCR Not Detected (NotDetected) Lyme Disease IgG Ab Lyme Disease IgM Ab C. pneumoniae DNA (PCR) Not Detected (NotDetected) Coronavirus OC43 (PCR) Not Detected (NotDetected) Coronavirus HKU1 (PCR) Not Detected (NotDetected) Coronavirus 229E (PCR) Not Detected (NotDetected) SARS-CoV-2 (PCR) Not Detected (NotDetected) Coronavirus NL63 (PCR) Not Detected (NotDetected) Human Metapneumovir PCR Not Detected (NotDetected) Influenza Type A (PCR) Not Detected (NotDetected) Influenza Type B (PCR) Not Detected (NotDetected) M. pneumoniae (PCR) Not Detected (NotDetected) Parainfluenza 1 (PCR) Not Detected (NotDetected) Parainfluenza 2 (PCR) Not Detected (NotDetected) Parainfluenza 3 (PCR) Not Detected (NotDetected) Parainfluenza 4 (PCR) Not Detected (NotDetected) RSV (PCR) Not Detected (NotDetected) Entero/Rhino (PCR) Not Detected (NotDetected) Administered Medications Miscellaneous (Icu Protocol For Hyperglycemia) 1 each N/A ACHS LAUREN Stop: 12/26/22 12:14 Last Admin: 12/24/22 12:18 Dose: Not Given Documented By: WRS Discontinued Medications Atropine Sulfate (Atropine Sulfate 0.1 Mg/Ml 10ml Syr) 0.5 mg IV NOW STA Stop: 12/24/22 09:04 Last Admin: 12/24/22 09:10 Dose: 0.5 mg Documented By: HNLuther Sodium Chloride (Nss 1000ml) 1,000 mls @ 999 mls/hr IV .Q1H1M STA Stop: 12/24/22 10:03 Last Infusion: 12/24/22 12:18 Dose: 0 mls/hr Documented By: Admin: 12/24/22 09:10 Dose: 999 mls/hr Documented By: HNB Imaging Data Radiologist's Impression: Chest X-Ray 12/24/22 09:04 XR chest 1V portable CLINICAL HISTORY: Dysrhythmia TECHNIQUE: Single frontal radiograph of the chest was obtained. Comparison: Comparison is made to chest radiograph 06/26/2014 FINDINGS: No lines and tubes are seen. Cardiomegaly is noted. Prominence and cephalization of the vasculature is seen. No evidence of pleural effusion or pneumothorax. IMPRESSION: Cardiomegaly and mild pulmonary edema. ACT 112: Negative or not required by law. Electronically signed by: Mich Huang M.D. 12/24/2022 10:32 AM Discharge Plan Visit Data Chief Complaint: Cardiac Assessment Stated Complaint: REF BY DOC; CARDIAC ASSESSMENT ED Provider: Jo-Ann Reddy Discharge Problem: Complete heart block, Pulmonary congestion Patient Disposition: Admitted As Inpatient Discharge Instructions Interventions: ED Discharge Assessment Last Done: 12/24/22 11:53
--- NOTE | 2022-12-24 14:42 | Cardiology Consultation ---
Date of Consultation December 24, 2022 Assessment & Plan (1) Complete heart block: -this likely started 1 week ago according to his symptom report. -he is hemodynamically stable with normal mentation. -no need for a temporary pacemaker. -he is on schedule for permanent pacemaker tomorrow with Dr. Cabrera. He is aware. (2) Pulmonary edema: -suggested on his chest x-ray. -he does have wheezing on physical exam (? cardiac asthma). -as he is hypertensive, suggest a dose of intravenous Lasix. History of Present Illness Attending Physician: Teto Hollis MD History of Present Illness Mr. Johnston is a 67-year-old male admitted earlier today with symptomatic complete heart block. This consultation was ordered to assist in his cardiac management. The patient was in his usual state of health until approximately 1 week prior to presentation. He began noting fatigue and brief episodes of dizziness.. He presented to his primary care physician's office this morning and was found to be significantly bradycardic. He was sent to the emergency room for further care. On arrival here, the patient was found to be in complete heart block. He had systolic blood pressure of 85, however, this responded well to intravenous hydration. The patient has never known of a cardiac event. Currently, he is resting comfortably in bed without complaints. Past medical and surgical history 1. RBBB 2. Nephrolithiasis 3. Diverticulosis 4. Obesity 5. Right knee arthroscopy Social history and lives with his in [employer] Works at the [employer] Smokes 1/2 pack of cigarettes daily, 20 pack year history Occasional alcohol Family history Father at 74 from lung carcinoma Mother at 84 from unknown causes Review of systems A 10 point review systems undertaken and negative except that described above. Allergies Allergy/AdvReac Type Severity Reaction Status Date / Time No Known Allergies Allergy Unverified 10/03/20 15:54 Home Medications Medication Instructions Recorded Confirmed Type No Known Home Medications 10/03/20 12/24/22 History Patient History Medical History Kidney stones Obesity Surgical History S/P right knee arthroscopy Social History Smoking Status: Current every day smoker Tobacco Type: Cigarettes Cigarettes Per Day: 20; Second Hand Exposure: No; Do You Dip or Chew Tobacco: No; Hx Alcohol Use: Yes Alcohol type: beer Hx Substance Use: No Preferred Language: Albanian Communication Ability: Effective What Job Titles Mean Required: No Beliefs That Will Affect Care: None marital status: Current Living Situation: Spouse current occupational status: employed Other Information That Helps Us Care for You: No Feels Safe at Home: Yes Safety Concerns: Feels Safe At This Time Assistive Devices: None and Glasses Physical Exam Physical Exam: In general this is a well-developed well-nourished white male in no acute distress. HEENT exam is negative. Neck is supple with full carotid upstrokes. There are no carotid bruits. Jugular venous pressure is flat at 90. There is no thyromegaly. Cardiovascular exam reveals a regular rhythm with distant heart sounds. No obvious murmurs. Lungs are clear without rales, rhonchi, or wheezes. Abdomen is soft and nontender without bruits. Extremities reveal intact radial artery and posterior tibial pulses bilaterally. There is no peripheral edema. Results & Data Vital Signs (Past 12 Hours) Vital Signs Temp Pulse Pulse Resp BP BP Pulse Ox 12/24/22 12:59 23 L 21 172/68 H 97 12/24/22 12:30 26 L 11 L 96 12/24/22 12:00 26 L 12 99 12/24/22 12:15 25 L 12/24/22 12:00 36.6 C 25 L 14 172/76 H 97 12/24/22 11:20 25 L 13 97 12/24/22 11:10 24 L 27 H 96 12/24/22 11:00 26 L 13 98 12/24/22 10:50 25 L 11 L 97 12/24/22 10:40 27 L 13 99 12/24/22 10:20 28 L 12 98 12/24/22 10:10 37 L 13 96 12/24/22 10:00 29 L 9 L 94 12/24/22 09:50 30 L 18 98 12/24/22 09:40 34 L 12 97 12/24/22 09:31 31 L 12 96 12/24/22 09:30 35 L 18 97 12/24/22 09:21 32 L 13 98 12/24/22 09:20 32 L 16 98 12/24/22 11:22 27 L 162/80 H 12/24/22 10:27 27 L 18 168/92 H 99 12/24/22 09:18 32 L 18 124/62 99 12/24/22 09:10 31 L 13 98 12/24/22 09:00 31 L 13 12/24/22 08:51 30 L 17 12/24/22 08:36 31 L 18 85/62 L 98 12/24/22 08:36 98 12/24/22 08:52 31 L 12/24/22 08:39 36.6 C 30 L 18 98 O2 Del Method 12/24/22 12:59 Room Air 12/24/22 12:30 Room Air 12/24/22 12:00 Room Air 12/24/22 12:15 12/24/22 12:00 Room Air 12/24/22 11:20 12/24/22 11:10 12/24/22 11:00 12/24/22 10:50 12/24/22 10:40 12/24/22 10:20 12/24/22 10:10 12/24/22 10:00 12/24/22 09:50 12/24/22 09:40 12/24/22 09:31 12/24/22 09:30 12/24/22 09:21 12/24/22 09:20 12/24/22 11:22 12/24/22 10:27 12/24/22 09:18 12/24/22 09:10 12/24/22 09:00 12/24/22 08:51 12/24/22 08:36 Room Air 12/24/22 08:36 Room Air 12/24/22 08:52 12/24/22 08:39 Room Air Laboratory Results CBC notes hemoglobin 17.2, crit 51.3, white count 5.7, and platelet count [id number]. Electrolytes note a sodium of 139, potassium 4.5, chloride 1 9, bicarb 25, BUN 19, creatinine 0.85, and glucose of 100. High sensitivity troponins 11.3. TSH is normal at 3.7. Lyme titers are negative. Diagnostic Findings EKG notes sinus rhythm with complete heart block. There was a idioventricular escape rhythm. Chest x-ray notes cardiomegaly and evidence of interstitial edema. PG Care Time/CCT Total # of Minutes Spent Total Time Spent with Patient: Total time spent is greater than 50% in coordination of care (as documented) at patient's floor/unit and/or counseling patient: Coding Level of Care Code 22149 INT INP/OBS CARE 3MIN Diagnoses Complete heart block I44.2 Pulmonary edema J81.1
[2022-12-24] MEDS ORDERED: FUROSEMIDE 40 MG/4 ML VIAL IV ONE (15:15)
--- NOTE | 2022-12-24 15:49 | Electrocardiogram Report ---
Test Reason : Blood Pressure : / mmHG Vent. Rate : 030 BPM Atrial Rate : 073 BPM P-R Int : 000 ms QRS Dur : 154 ms QT Int : 560 ms P-R-T Axes : 058 062 003 degrees QTc Int : 395 ms Sinus rhythm with complete heart block and Idioventricular rhythm Right bundle branch block Abnormal ECG When compared with ECG of 26-MAR-2020 09:50, Idioventricular rhythm has replaced Sinus rhythm Vent. rate has decreased BY 25 BPM Confirmed by Chemo Jensen ([id number]) on 12/24/2022 3:49:28 PM Referred By: Confirmed By:Chemo Jensen
[2022-12-24] MEDS ORDERED: ATROPINE SULFATE 0.1 MG/ML 10ML SYR IV PRN (16:03)
--- NOTE | 2022-12-24 16:16 | XCELERA ---
[id number] \\[id number]
--- NOTE | 2022-12-24 19:27 | Critical Care Consultation ---
Date of Consultation December 24, 2022 Assessment & Plan (1) Complete heart block: Impression: 67-year-old male without significant past medical history presents to the ICU with complete heart block and plan to go for permanent pacer tomorrow. We will monitor in ICU closely overnight as patient is high risk of decompensation with heart rate in the high 20s to low 30s, but so far asymptomatic. Neuro - Negative Cardiac - Complete heart blockawaiting permanent pacer with plan to undergo tomorrow morning. N.p.o. at midnight -Continuous monitor on telemetry. If patient were to become symptomatic or hemodynamically unstable, will need transvenous pacer overnight. -Transcutaneous pads on patient and atropine at bedside if needed -Lyme and viral panel negative -Echo with normal ventricular function and valvular function Respiratory - Pulmonary edemacurrently maintaining oxygen saturations on room air without respiratory distress. Chest x-ray with cardiomegaly and mild pulmonary edema for which she is asymptomatic at the time -Was given 40 IV Lasix, currently -1300 mL fluid balance. Hold on further diuresis for now -Patient is active smoker. No history of COPD and no PFTs on file. Encouraged cessation -Continuous monitoring on pulse ox GI - Regular diet, n.p.o. at midnight RENAL/LYTES - Creatinine within normal limits, monitor routine BMP and replete electrolytes as indicated - Strict I's and O's ENDO - No history of diabetes or thyroid disease. ICU hyperglycemic protocol HEME - H&H stable, monitor routine CBC ID - No indication for infectious process at this time LINES/IV ACCESS - Peripheral IVs DVT PROPHYLAXIS - SCDs Thank you for allowing us to participate in the care of this patient. Please refer to my attending physician's documentation for any further recommendations. (2) Pulmonary edema: (3) Smoker: History of Present Illness Attending Physician: Teto Hollis MD History of Present Illness Patient is a 67-year-old male with PMH active smoker, and previous episode of diverticulitis who presented to the emergency department after being found to have profound bradycardia with heart rate in the 30s at his primary care physician's office. Patient has had previous episodes of dizziness over the past few days, and he made an appointment at his primary care physician. Emergency department he was found to be in complete heart block with heart rate in the 30s, but normotensive and asymptomatic. Patient is Lyme disease and viral panel negative. Echocardiogram with normal EF and valvular function. Troponin was within normal limits, he does not take medications at home. Plan to go for permanent pacer tomorrow morning. If patient were to decompensate would likely need transvenous pacer overnight. Admitted to ICU for close monitoring. Allergies Allergy/AdvReac Type Severity Reaction Status Date / Time No Known Allergies Allergy Unverified 10/03/20 15:54 Home Medications Medication Instructions Recorded Confirmed Type No Known Home Medications 10/03/20 12/24/22 History Patient History Medical History Kidney stones Obesity Surgical History (Reviewed 12/24/22 @ 14: by Jo-Ann Reddy MD) S/P right knee arthroscopy Social History (Reviewed 12/24/22 @ 14: by Jo-Ann Reddy MD) Smoking Status: Current every day smoker Tobacco Type: Cigarettes Cigarettes Per Day: 20; Second Hand Exposure: No; Do You Dip or Chew Tobacco: No; Hx Alcohol Use: Yes Alcohol type: beer Hx Substance Use: No Preferred Language: Telugu Communication Ability: Effective Fixed Assets Accountant Required: No Beliefs That Will Affect Care: None marital status: Current Living Situation: Spouse current occupational status: employed Other Information That Helps Us Care for You: No Feels Safe at Home: Yes Safety Concerns: Feels Safe At This Time Assistive Devices: None and Glasses Review of Systems Review of Systems: Patient denies dizziness at the moment although he has had spells over the past few days without loss of consciousness or fainting. He denies headache, changes in vision, illness or fever, sore throat, shortness of breath, chest pain or palpitations, abdominal pain, nausea vomiting or diarrhea, swelling in hands or feet, changes in gait, changes in urinary stream or frequency. Results & Data Results & Data Vital Signs (Past 12 Hours) Vital Signs Temp Pulse Pulse Resp BP BP Pulse Ox 12/24/22 18:30 29 L 14 135/74 93 12/24/22 16:00 34 L 12/24/22 16:06 36.8 C 34 L 16 164/80 H 96 12/24/22 14:41 36.8 C 24 L 14 168/70 H 99 12/24/22 12:59 23 L 21 172/68 H 97 12/24/22 12:30 26 L 11 L 96 08/16/23 12:00 26 L 12 99 12/24/22 12:15 25 L 12/24/22 12:00 36.6 C 25 L 14 172/76 H 97 12/24/22 11:20 25 L 13 97 12/24/22 11:10 24 L 27 H 96 12/24/22 11:00 26 L 13 98 12/24/22 10:50 25 L 11 L 97 12/24/22 10:40 27 L 13 99 12/24/22 10:20 28 L 12 98 12/24/22 10:10 37 L 13 96 12/24/22 10:00 29 L 9 L 94 12/24/22 09:50 30 L 18 98 12/24/22 09:40 34 L 12 97 12/24/22 09:31 31 L 12 96 12/24/22 09:30 35 L 18 97 12/24/22 09:21 32 L 13 98 12/24/22 09:20 32 L 16 98 12/24/22 11:22 27 L 162/80 H 12/24/22 10:27 27 L 18 168/92 H 99 12/24/22 09:18 32 L 18 124/62 99 12/24/22 09:10 31 L 13 98 12/24/22 09:00 31 L 13 12/24/22 08:51 30 L 17 12/24/22 08:36 31 L 18 85/62 L 98 12/24/22 08:36 98 12/24/22 08:52 31 L 12/24/22 08:39 36.6 C 30 L 18 98 O2 Del Method 12/24/22 18:30 Room Air 12/24/22 16:00 12/24/22 16:06 Room Air 12/24/22 14:41 Room Air 12/24/22 12:59 Room Air 12/24/22 12:30 Room Air 12/24/22 12:00 Room Air 12/24/22 12:15 12/24/22 12:00 Room Air 12/24/22 11:20 12/24/22 11:10 12/24/22 11:00 12/24/22 10:50 12/24/22 10:40 12/24/22 10:20 12/24/22 10:10 12/24/22 10:00 12/24/22 09:50 12/24/22 09:40 12/24/22 09:31 12/24/22 09:30 12/24/22 09:21 12/24/22 09:20 12/24/22 11:22 12/24/22 10:27 12/24/22 09:18 12/24/22 09:10 12/24/22 09:00 12/24/22 08:51 12/24/22 08:36 Room Air 12/24/22 08:36 Room Air 12/24/22 08:52 12/24/22 08:39 Room Air Coding Level of Care Code 28098 IN/OBS CONSULT LVL 3,45M Diagnoses Complete heart block I44.2 Pulmonary edema J81.1 Smoker F17.200
[2022-12-25 05:01] LABS: Hemoglobin 15.3 g/dl (14.0-18.0); Mean Corpuscular Hemoglobin 29.3 pg (25.0-34.0); Mean Platelet Volume 10.6 fL (9.4-12.4); Platelet Count 171 K/uL (130-400); RDW Coefficient of Variation 13.5 % (11.5-14.5); RDW Standard Deviation 42.7 fL (36.4-46.3); Red Blood Count 5.23 M/uL (4.70-6.10); White Blood Count 6.21 K/ul (4.8-10.8)
[2022-12-25 05:09] LABS: BUN Creatinine Ratio 22.2 (10-20); Creatinine Clr Calc Pharmacy 101.3 ml/min; Est GFR (African American) 103.5 ml/min; Est GFR (Non-African American) 89.3 ml/min; Magnesium 2.1 mg/dl (1.7-2.4); Potassium 4.1 mmol/L (3.5-5.1)
--- NOTE | 2022-12-25 07:11 | Hospitalist Progress Note ---
Date of Service December 25, 2022 Assessment & Plan (1) Complete heart block: Plan: IMPRESSION: 67-year-old male presented to the emergency department with episodes of dizziness he was found to be in complete heart block. * Lyme titers have returned and are negative. * Discussed the case with cardiology now status post Dual dual-chamber pacemaker placement. * echocardiogram preserved EF no RWMA * ICU status (2) Smoker: Plan: * Patient with a greater than 20 pack year history. Currently smoke 1/2 ppd. * Encourage smoking cessation. * Patient declines nicotine patches. * Moving forward, the patient qualifies for routine yearly LDCT lung cancer screening which can be managed in the outpatient setting. (3) Pulmonary edema: Plan: * As noted on CXR. * Patient asymptomatic and saturating well on room air. * IV lasix administrated no additional dosing required Admission and Anticipated Discharge Date Admission Date: December 24, 2022 Subjective patient continues with complete heart block rates in the 20s patient has no symptoms when not moving but does get lightheaded when moving about. Patient for pacemaker placement by Dr. Cabrera Physical Exam Physical Exam: awake alert appropriate card exam is bradycardic there are no murmurs Results & Data Results & Data Vital Signs (Past 12 Hours) Vital Signs Temp Pulse Resp BP Pulse Ox 12/25/22 06:00 11 L 12/25/22 05:00 27 L 13 95 12/25/22 06:21 160/70 H 12/25/22 04:30 135/62 12/25/22 04:00 29 L 14 92 12/25/22 03:00 29 L 15 90 12/25/22 04:00 97.9 F 12/25/22 02:00 27 L 12 92 12/25/22 01:00 29 L 14 91 12/25/22 00:00 29 L 15 91 12/25/22 02:09 160/80 H 12/25/22 00:37 143/70 H 12/25/22 00:00 28 L 12/24/22 23:00 29 L 12 91 12/24/22 22:00 31 L 14 92 12/24/22 21:00 30 L 22 93 12/24/22 20:00 29 L 14 93 12/24/22 23:26 97.9 F 140/70 12/24/22 21:00 143/65 H 08/16/23 19:52 98.1 F 140/80 PG Care Time/CCT Total # of Minutes Spent Total Time Spent with Patient: Total time spent is greater than 50% in coordination of care (as documented) at patient's floor/unit and/or counseling patient: Coding Level of Care Code 32155 SUB INP/OBS CARE 2/35MIN Diagnoses Complete heart block I44.2 Smoker F17.200 Pulmonary edema J81.1
--- NOTE | 2022-12-25 07:31 | Critical Care Progress Note ---
Date of Service December 25, 2022 Assessment & Plan (1) Complete heart block: Plan: Impression: 67-year-old male without significant past medical history presents to the ICU with complete heart block and plan to go for permanent pacer tomorrow. We will monitor in ICU closely overnight as patient is high risk of decompensation with heart rate in the high 20s to low 30s, but so far asymptomatic. Neuro - Negative Cardiac - Complete heart blockawaiting permanent pacer with plan to undergo tomorrow morning. Currently n.p.o. -Lyme and viral panel negative -Echo with normal ventricular function and valvular function Respiratory - Pulmonary edemaresolved tolerating room air GI - Currently n.p.o. RENAL/LYTES - Creatinine within normal limits, monitor routine BMP and replete electrolytes as indicated - Strict I's and O's ENDO - No history of diabetes or thyroid disease. ICU hyperglycemic protocol HEME - H&H stable, monitor routine CBC ID - No indication for infectious process at this time LINES/IV ACCESS - Peripheral IVs DVT PROPHYLAXIS - SCDs Stable for downgrade out of ICU once permanent pacemaker is placed (2) Pulmonary edema: (3) Smoker: Admission and Anticipated Discharge Date Admission Date: December 24, 2022 Subjective No overnight events. Patient asymptomatic without chest pain shortness of julián th nor lightheadedness Physical Exam Physical Exam: General: Alert. nontoxic. Skin: Warm, dry, Head: Atraumatic Ears, nose, mouth and throat: airway patent Cardiovascular: Normal peripheral perfusion , external pacer pads attached, complete heart block on bedside monitor with bradycardia Respiratory: no respiratory distress Gastrointestinal: Non distended Musculoskeletal: No deformity Results & Data Results & Data Vital Signs (Past 12 Hours) Vital Signs Temp Pulse Resp BP Pulse Ox 12/25/22 06:00 11 L 12/25/22 05:00 27 L 13 95 12/25/22 06:21 160/70 H 12/25/22 04:30 135/62 12/25/22 04:00 29 L 14 92 12/25/22 03:00 29 L 15 90 12/25/22 04:00 36.6 C 12/25/22 02:00 27 L 12 92 12/25/22 01:00 29 L 14 91 12/25/22 00:00 29 L 15 91 12/25/22 02:09 160/80 H 12/25/22 00:37 143/70 H 12/25/22 00:00 28 L 12/24/22 23:00 29 L 12 91 12/24/22 22:00 31 L 14 92 12/24/22 21:00 30 L 22 93 12/24/22 20:00 29 L 14 93 12/24/22 23:26 36.6 C 140/70 12/24/22 21:00 143/65 H 12/24/22 19:52 36.7 C 140/80 Critical Care Results & Data Vital Signs (Past 12 Hours) Vital Signs Temp Pulse Pulse Resp BP BP Pulse Ox 12/25/22 08:00 36.6 C 29 L 16 132/68 12/25/22 06:00 11 L 12/25/22 05:00 27 L 13 95 12/25/22 06:21 160/70 H 12/25/22 04:30 135/62 12/25/22 04:00 29 L 14 92 12/25/22 03:00 29 L 15 90 12/25/22 04:00 36.6 C 12/25/22 02:00 27 L 12 92 12/25/22 01:00 29 L 14 91 12/25/22 00:00 29 L 15 91 12/25/22 02:09 160/80 H 12/25/22 00:37 143/70 H 12/25/22 00:00 28 L 12/24/22 23:00 29 L 12 91 12/24/22 22:00 31 L 14 92 12/24/22 23:26 36.6 C 140/70 O2 Del Method 12/25/22 08:00 Room Air 12/25/22 06:00 12/25/22 05:00 12/25/22 06:21 12/25/22 04:30 12/25/22 04:00 12/25/22 03:00 12/25/22 04:00 12/25/22 02:00 12/25/22 01:00 12/25/22 00:00 12/25/22 02:09 12/25/22 00:37 12/25/22 00:00 12/24/22 23:00 12/24/22 22:00 12/24/22 23:26 Lab & Micro Results (Past 24 Hours) RBC 5.23 M/uL (4.70-6.10) 12/25/22 WBC 6.21 K/ul (4.8-10.8) 12/25/22 Hgb 15.3 g/dl (14.0-18.0) 12/25/22 Hct 45.0 % (42.0-52.0) 12/25/22 MCV 86.0 fL (80.0-100.0) 12/25/22 MCH 29.3 pg (25.0-34.0) 12/25/22 MCHC 34.0 g/dL (32.0-36.0) 12/25/22 RDW Standard Deviation 42.7 fL (36.4-46.3) 12/25/22 RDW Coefficient of Variation 13.5 % (11.5-14.5) 12/25/22 Plt Count 171 K/uL (130-400) 12/25/22 MPV 10.6 fL (9.4-12.4) 12/25/22 Na 139 mmol/L (136-145) 12/25/22 K 4.1 mmol/L (3.5-5.1) 12/25/22 Cl 108 mmol/L (98-107) H 12/25/22 CO2 25 mmol/L (21-32) 12/25/22 Anion Gap 6 (3-11) 12/25/22 BUN 20 mg/dl (6-23) 12/25/22 Creatinine 0.90 mg/dl (0.6-1.4) 12/25/22 Estimated GFR ( Amer) 103.5 ml/min 12/25/22 Estimated GFR (Non-Af Amer) 89.3 ml/min 12/25/22 BUN/Creatinine Ratio 22.2 (10-20) H 12/25/22 Glu 93 mg/dl (70-99(Fasting)) 12/25/22 Ca 9.0 mg/dl (8.6-10.3) 12/25/22 AST 12 U/L (13-39) L 12/24/22 Mg 2.1 mg/dl (1.7-2.4) 12/25/22 04:27 Calcium Level 9.0 mg/dl (8.6-10.3) 12/25/22 04:27 Diagnostic Findings (Past 24 Hours) Chest X-Ray 12/24/22 09:04 XR chest 1V portable CLINICAL HISTORY: Dysrhythmia TECHNIQUE: Single frontal radiograph of the chest was obtained. Comparison: Comparison is made to chest radiograph 06/26/2014 FINDINGS: No lines and tubes are seen. Cardiomegaly is noted. Prominence and cephalization of the vasculature is seen. No evidence of pleural effusion or pneumothorax. IMPRESSION: Cardiomegaly and mild pulmonary edema. ACT 112: Negative or not required by law. Electronically signed by: Mich Huang M.D. 12/24/2022 10:32 AM I & O Totals 24 Hours 12/24/22 12/25/22 12/26/22 06:59 06:59 06:59 Intake Total 1000 / 1000 Output Total 3100 / 3100 Balance -2100 / -2100 Cumulative 12/24/22 08:36 thru 12/25/22 06:30 Intake Total 1000 Output Total 3100 Balance -2100 RT Ventilator Mngmt (Last Documented) Ventilator Ordered Settings Respiratory Rate 16 12/25/22 08:00 Ventilator - PT Measurements Respiratory Rate 16 Coding Level of Care Code 27299 SUB INP/OBS CARE 2/35MIN Diagnoses Complete heart block I44.2 Pulmonary edema J81.1 Smoker F17.200
[2022-12-25] MEDS: ICU Protocol for HYPERglycemia SCH ×4 (08:07→21:54)
[2022-12-25] MEDS ORDERED: MIDAZOLAM HCL 5 MG/ML 1 ML VIAL ONE ×2 (12:45→14:19)
[2022-12-25] MEDS ORDERED: fentaNYL citrate PF 100 MCG/2 ML VIAL ONE ×2 (12:46→14:10)
--- NOTE | 2022-12-25 12:54 | Pre Anesthesia Assessment ---
Date of Service December 25, 2022 Pre Sedation Assessment Vital Signs Temp Pulse Pulse Resp BP BP Pulse Ox 12/25/22 11:27 36.7 C 26 L 16 156/64 H 95 12/25/22 10:59 25 L 12/25/22 10:00 31 L 12/25/22 09:00 29 L 12/25/22 08:00 36.6 C 29 L 16 132/68 12/25/22 06:00 11 L 12/25/22 05:00 27 L 13 95 12/25/22 06:21 160/70 H 12/25/22 04:30 135/62 12/25/22 04:00 29 L 14 92 12/25/22 03:00 29 L 15 90 12/25/22 04:00 36.6 C 12/25/22 02:00 27 L 12 92 12/25/22 01:00 29 L 14 91 12/25/22 00:00 29 L 15 91 12/25/22 02:09 160/80 H 12/25/22 00:37 143/70 H 12/25/22 00:00 28 L 12/24/22 23:00 29 L 12 91 12/24/22 22:00 31 L 14 92 12/24/22 21:00 30 L 22 93 12/24/22 20:00 29 L 14 93 12/24/22 19:00 30 L 14 92 12/24/22 23:26 36.6 C 140/70 12/24/22 21:00 143/65 H 12/24/22 19:52 36.7 C 140/80 12/24/22 18:30 29 L 14 135/74 93 12/24/22 16:00 34 L 12/24/22 16:06 36.8 C 34 L 16 164/80 H 96 12/24/22 14:41 36.8 C 24 L 14 168/70 H 99 12/24/22 12:59 23 L 21 172/68 H 97 O2 Del Method 12/25/22 11:27 Room Air 12/25/22 10:59 12/25/22 10:00 12/25/22 09:00 12/25/22 08:00 Room Air 12/25/22 06:00 12/25/22 05:00 12/25/22 06:21 12/25/22 04:30 12/25/22 04:00 12/25/22 03:00 12/25/22 04:00 12/25/22 02:00 12/25/22 01:00 12/25/22 00:00 12/25/22 02:09 12/25/22 00:37 12/25/22 00:00 12/24/22 23:00 12/24/22 22:00 12/24/22 21:00 12/24/22 20:00 12/24/22 19:00 12/24/22 23:26 12/24/22 21:00 12/24/22 19:52 12/24/22 18:30 Room Air 12/24/22 16:00 12/24/22 16:06 Room Air 12/24/22 14:41 Room Air 12/24/22 12:59 Room Air Cardiovascular + bradycardic Respiratory + respiratory effort normal Pre-Sedation Airway Assessment Smoking Status: Current every day smoker Hx Sleep Apnea: No Hx Difficult Intubation: No Short, Thick Neck: No Thyromental Distance: > or= 3.5 Finger Breadths Oral Cavity: + WNL Mallampati Class: III ASA: ASA4 NPO Status Date of Last Intake of Fluids: 12/25/22 Time of Last Intake of Fluids: 08:00 Date of Last Intake of Solid Food: 12/24/22 Procedure Planning Contraindications for Sedation: none Current Medications Reviewed: Yes Notes The planned sedation has been discussed with the patient. Informed Consent was obtained. I have identified the patient, determined the appropriateness of sedation and have assessed the patient immediately prior to the procedure. All medicine(s) and interventions are by my order.
[2022-12-25] MEDS ORDERED: ceFAZolin 330 MG/ML 1 GM VIAL ONE (13:05)
[2022-12-25] MEDS ORDERED: oxyCODONE HCL IR 5 MG TAB (IMMEDIATE RELEASE) PO PRN (14:50)
--- NOTE | 2022-12-25 14:50 | Post Anesthesia Assessment ---
Date of Service December 25, 2022 Post Sedation Assessment Vital Signs Temp Pulse Pulse Resp BP BP Pulse Ox 12/25/22 11:27 36.7 C 26 L 16 156/64 H 95 12/25/22 10:59 25 L 12/25/22 10:00 31 L 12/25/22 09:00 29 L 12/25/22 08:00 36.6 C 29 L 16 132/68 12/25/22 06:00 11 L 12/25/22 05:00 27 L 13 95 12/25/22 06:21 160/70 H 12/25/22 04:30 135/62 12/25/22 04:00 29 L 14 92 12/25/22 03:00 29 L 15 90 12/25/22 04:00 36.6 C 12/25/22 02:00 27 L 12 92 12/25/22 01:00 29 L 14 91 12/25/22 00:00 29 L 15 91 12/25/22 02:09 160/80 H 12/25/22 00:37 143/70 H 12/25/22 00:00 28 L 12/24/22 23:00 29 L 12 91 12/24/22 22:00 31 L 14 92 12/24/22 21:00 30 L 22 93 12/24/22 20:00 29 L 14 93 12/24/22 19:00 30 L 14 92 12/24/22 23:26 36.6 C 140/70 12/24/22 21:00 143/65 H 12/24/22 19:52 36.7 C 140/80 12/24/22 18:30 29 L 14 135/74 93 12/24/22 16:00 34 L 12/24/22 16:06 36.8 C 34 L 16 164/80 H 96 O2 Del Method 12/25/22 11:27 Room Air 12/25/22 10:59 12/25/22 10:00 12/25/22 09:00 12/25/22 08:00 Room Air 12/25/22 06:00 12/25/22 05:00 12/25/22 06:21 12/25/22 04:30 12/25/22 04:00 12/25/22 03:00 12/25/22 04:00 12/25/22 02:00 12/25/22 01:00 12/25/22 00:00 12/25/22 02:09 12/25/22 00:37 12/25/22 00:00 12/24/22 23:00 12/24/22 22:00 12/24/22 21:00 12/24/22 20:00 12/24/22 19:00 12/24/22 23:26 12/24/22 21:00 12/24/22 19:52 12/24/22 18:30 Room Air 12/24/22 16:00 12/24/22 16:06 Room Air Recovery Score Activity: Moves 4 extremities Respiration: Deep Breath/Cough Circulation: +/-20% PreAnes Value Consciousness: Fully Awake Oxygen Saturation: > 92% On Room Air Discharge Sedation Level of Care: Fast Track Phase II Post Sedation Plan On clinical assessment, the patient appears to have tolerated the sedation without complications. Patient is recovering as anticipated. Patient will continue to be monitored by nursing and may be discharged when sedation discharge criteria are met per below protocol. Upon Completions of procedure up to 15 minutes continue every 5 minute vital signs and the P.A.R. score; then discharge to a Phase I or Fast Track to Phase II per the following guidelines: * Discharge Patient to appropriate Phase II area if PAR is 8 or greater or return to pre- procedure baseline. The post - procedure orders will be as directed. * If PAR score is less than 8 or not return to pre-procedure baseline then patient will follow Phase I monitoring till PAR is reached for Phase II. The Phase I may be done in procedure room or may call to secure a Phase I area. * If naloxone or flumazenil are used for reversal, hold in Phase I for continued monitoring from when last reversal dose was given for a minimum of 60 minutes or longer pending the nurse and/or physician discretion of patient condition before discharge to Phase II. Please call the Sedation Physician to re-evaluate and complete post-note for discharge to Phase II area. Do NOT discharge from procedure sedation or Phase 1 until post- sedation evaluation note is complete by procedure /sedation MD Sedation Discharge Instructions to be given to the patient at discharge to home.
--- NOTE | 2022-12-25 14:50 | Electrophysiology Report ---
Date of Service December 25, 2022 Electrophysiology Procedure Electrophysiology Procedure Report Procedure performed: Implantation of dual-chamber permanent pacemaker with left bundle pacing lead Staff sas sql developer: Alexis Cabrera MD Indication: The patient is a 67-year-old gentleman who presented to the hospital with symptomatic bradycardia. He was in complete heart block. No reversible etiology was found. He is felt to be a good candidate for dual-chamber permanent pacemaker due to symptomatic nonreversible AV node dysfunction. Dual- chamber device was selected as he is currently in sinus rhythm and wish to maintain AV synchrony. Procedure in detail: The patient was informed of the risks benefits and alternatives to the intended procedure and she wished to proceed. He was taken to the electrophysiology suite in a fasting state. A preoperative antibiotic had been administered. The patient was monitored electrocardiographically throughout today's procedure and conscious sedation was administered per protocol. The left upper pectoral area is prepped and draped in usual sterile fashion. This area was anesthetized using subcutaneous administration of a xylocaine solution. An incision was made at this site and carried down to the prepectoralis fascia using sharp dissection. Electrocautery was also employed for dissection as well as for hemostasis. A device pocket was fashioned tissues above the pectoralis muscle. Subsequent to this maneuver the left axillary vein was accessed using modified Seldinger technique. Sheath was placed over guidewire initially used to facilitate passage of a pacing lead to the right ventricular apex for backup pacing. A second sheath was placed over the remaining guidewire and used to facilitate passage of a guiding catheter for mapping of the interventricular septum. Once an adequate location was identified the pacing lead was advanced into the interventricular septum until the appropriate waveform and parameters were obtained. At this point the guiding catheter and sheath were removed. Proximal portion of the lead was then sutured to prepectoralis fascia using nonabsorbable suture. The previously placed ventricular lead was then retracted back into the right atrium. Adequate sensing and threshold parameters were obtained prior to active fixation of this lead to the endocardial surface of the right atrium. The proximal portion of the lead was then sutured to prepectoralis fascia using nonabsorbable suture. The device pocket was irrigated with antibiotic solution. The leads were then attached to the device. The device and leads were then placed in the pocket and pocket was closed in 3 layers of absorbable suture. Steri-Strips and sterile dressing were applied. The device was tested noninvasively prior to conclusion the procedure. The patient tolerated procedure well there no immediate complications. Equipment used: New pulse generator: [employer]. Model number: [id number] serial number [id number] Right atrial lead: [employer]. Model number: 5076 serial number [id number] Right ventricular lead: [employer]visor [employer]. Model number: 3830 serial number [id number] Measured data: Right atrial lead: P waves measure 1.6 mV. Pacing threshold was 0.9 V at 0.5 ms with a pacing impedance of 637 ohms Right ventricular lead: No intrinsic R waves are measured. Pacing threshold is 0.4 V at 0.5 ms with a pacing impedance of 952 ohms Impression: Successful implantation of dual-chamber permanent pacemaker with left bundle pacing lead [facility] Electrophysiology codes Pacing Procedure 1: Pacin Insert/Replace Pacer A & V PG Moderate Sedation Codes Moderate Sedation Codes Procedure 1: Sedation/Anesthesia: 85759 Mod Sedation by the same physician;Init15 Min Child Age 5 & Up Procedure 2: Sedation/Anesthesia: 75138 Mod Sedation by the same physician; Ea [id number] Minutes
[2022-12-25] MEDS ORDERED: LIDOCAINE 1% LOCAL 20 ML VIAL ONE (14:56)
[2022-12-25] MEDS ORDERED: WATER, STERILE FOR INJ 10 ML VIAL ONE (14:57)
[2022-12-25] MEDS ORDERED: BUPIVACAINE 0.25% PF 30 ML VIAL ONE (14:57)
[2022-12-25] MEDS ORDERED: VANCOMYCIN HCL 1000MG/20ML VIAL ONE (14:57)
[2022-12-25] MEDS ORDERED: ceFAZolin 2000MG 2,000 MG/15 ML SYR IV ONE (21:00)
[2022-12-25] MEDS ORDERED: ceFAZolin 1000MG 1,000 MG/7.5 ML SYR IV ONE (21:00)
[2022-12-26 05:05] LABS: Hematocrit (blood only) 46.3 % (42.0-52.0); Hemoglobin 16.1 g/dl (14.0-18.0); Mean Corpuscular Hemoglobin 29.5 pg (25.0-34.0); Mean Corpuscular Hgb Conc 34.8 g/dL (32.0-36.0); Mean Platelet Volume 10.5 fL (9.4-12.4); Platelet Count 150 K/uL (130-400); RDW Coefficient of Variation 13.2 % (11.5-14.5); RDW Standard Deviation 41.3 fL (36.4-46.3); Red Blood Count 5.45 M/uL (4.70-6.10); White Blood Count 5.33 K/ul (4.8-10.8)
[2022-12-26 05:14] LABS: BUN Creatinine Ratio 26.3 (10-20); Creatinine Clr Calc Pharmacy 108.9 ml/min; Est GFR (African American) 108.7 ml/min; Est GFR (Non-African American) 93.7 ml/min; Phosphorus 3.6 mg/dl (2.5-4.9)
--- NOTE | 2022-12-26 07:10 | XRay Report ---
XR chest 2V PA/lateral HISTORY: 67 years-old Male EXACT TIME ORDERED Evaluate for pneumothorax and l status post placement of a left subclavian pacer COMPARISON: 12/24/2022 TECHNIQUE: PA and lateral views of the chest FINDINGS: Cardiac silhouette is enlarged. Left subclavian pacer. Pulmonary vascular congestion with unchanged i nterstitial coarsening. No pneumothorax, large pleural effusion or lobar airspace consolidation. Spon dylotic spurring of the spine. IMPRESSION: Status post placement of a dual lead left subclavian pacer. No postprocedural pneumothora x identified. ACT 112: Negative or not required by law. The above report was generated using voice recognition software. It may contain grammatical, syntax o r spelling errors. Electronically signed by: Hardy Burdick M.D. 12/26/2022 7:09 AM
--- NOTE | 2022-12-26 09:27 | Discharge Summary ---
Date of Service December 26, 2022 Admission HPI Per Admitting Provider Patient is a 67-year-old male with no reported past medical history other than prior episode of diverticulitis and a daily smoker who presented to the emergency department after seeing his primary care provider's office for episodes of dizziness. Upon their evaluation, the patient was noted to be profoundly bradycardic. He was directed to the emergency department for ongoing care. Upon evaluation in the emergency department, the patient was noted to be in a complete heart block with a rate in the 30s. He was not found to be hypotensive. He is asymptomatic at rest. Patient reports no history of similar symptoms in the past. He does not take antihypertensives and specifically no use of beta-iain or calcium channel blockers. He takes no routine medications daily at all. [place] him in the last year, but no tick bites in greater than 2 years. He has had no rashes. No recent febrile illnesses. Other than occasional episodes of dizziness, he offers no complaints at this time. Patient reports smoking approximately half pack a day for the last 40 or so years. He denies complaints of chronic cough, shortness of breath, or chest discomfort. Principal Diagnosis Symptomatic bradycardia, complete heart block Discharge Exam The patient is alert and oriented. Mood and affect appeared normal. He answered all questions appropriately. HEENT: Pupils are equal and reactive to light and accommodation. Extraocular movements are intact. The sclerae are anicteric. Neuro: Cranial nerves intact The device implant site is free of hematoma, significant erythema or drainage. Very mild ecchymosis. Normal respiratory effort Regular rhythm Discharge Data Allergies Allergy/AdvReac Type Severity Reaction Status Date / Time No Known Allergies Allergy Unverified 10/03/20 15:54 Consultations 12/24/22 10:28 ED Decision to Admit Stat 12/24/22 12:15 Consult Backup Engineer Routine 12/24/22 12:22 Consult Cardiology Routine Procedures Performed Operation Date: 12/25/22 15:00 Actual Procedures p Pacer with A/V Leads (Dual) - Alexis Cabrera MD Ordered Studies 12/25/22 07:00 EP Lab Images for PACS ONCE Hospital Course (1) Complete heart block: The patient underwent implantation of a dual-chamber [employer] pacemaker on 12/25/2022. His postoperative course was uneventful. No complications. (2) Pulmonary edema: -suggested on his chest x-ray. No symptoms. Total Time Total Time Spent Total Time Spent (In Minutes): 20 Discharge Plan Discharge Items Patient Disposition: Home - Self-Care Reason For Visit: COMPLETE HEART BLOCK Discharge Diagnosis: Bradycardia Activity: Per Instructions section Activity Comment: No lifting left arm above shoulder or behind neck for 6 weeks Lifting: No more than 10 pounds Bathing: Keep incision dry Bathing Comment: Keep wound dry and steri-strip intact until f/u next week Sexual Activity: When tolerated Exercise/Sports: Rest today Driving/Machine Use: Resume 1 day after discharge Non-emergency contact: Business Applications Developer Call non-emergency contact if: you have any medication questions, your symptoms worsen, your pain is concerning for you, you have a fever and your wound has increased redness Follow-up/Referrals: Alexis Cabrera MD [Physician] - 01/07/23 9:45 am PCP,NO [Primary Care Provider] - Diet: Heart Healthy Addtl Attending Provider Instructions: Patient with not be able to perform usual duties at work for 6 weeks. Restrictions involve raising left arm above shoulder or behind neck, lifting >10# Pending Studies at Discharge: No Stand-Alone Forms: [employer], Smoking Cessation Medications and DC Order Prescriptions: No Action No Known Home Medications Discharge Orders: Discharge Order (Routine); Ordered 12/26/22 Ordered By: Alexis Snow/Other Patient Handouts: Facts About Dietary Fat, Health Effects of Smoking Admission Data Admit Date/Time: 12/24/22 11:17 Attending Provider: Zak Calle Admit Provider: Zak Calle Primary Care Provider: PCP,NO Other Providers: Teto Hollis Brian W ; Alexis Cabrera Other Interventions: Discharge Summary Assessment (RN) Last Done: 12/26/22 10:25 Coding Level of Care Code 15188 IN/OBS DISCH 30 MIN/LESS Diagnoses Complete heart block I44.2 Pulmonary edema J81.1
== END 2022-12-26 10:50 | disposition home or self-care (01) | DRG 243 ==
LOC: ED 08:36 → SUATTDRO 11:17 → 1E 11:17